=== PATIENT | male | born 1965 | race Caucasian/White ===

== ENCOUNTER 2017-11-12 10:29 | Inpatient (IN) | payer OTHER ==
[~2017-11-12] VITALS: Ht 165.1 cm; Wt 69.4 kg
[~2017-11-12 10:29] MED LIST: LISI10TA5 PO
--- NOTE | 2017-11-12 10:33 | NUR ---
AAOX3, [id number] FROM THE STREET FOR COUGH AND CONGESTION X 2 MOS, SOB,CP HYPOXIC IN THE FIELD, [id number]=472.1. TACHYPNEIC AND TACHYCARDIC. SKIN IS HOT TO TOUCH. ASSISTED TO HOSPITAL GOWN, PLACED ON MONITOR. WILL CONTINUOUSLY MONITOR THE PATIENT. AWAITING MD FOR EVAL.
--- NOTE | 2017-11-12 10:35 | NUR ---
DR NEAL AT BS FOR EVAL.
[2017-11-12] MEDS ORDERED: CEFTRIAXONE 1GM BAG (ER ONLY) 50 ML IV ONE (11:00)
[2017-11-12] MEDS ORDERED: IV NS 0.9% 1,000 ML BAG IV ONE (11:00)
[2017-11-12] MEDS ORDERED: AZITHROMYCIN 500 MG in IV D5W 250 ML IV ONE (11:00)
[2017-11-12 11:12] LABS: BASOPHILS # (AUTO) 0.1 /CMM (0.0-0.2); EOSINOPHILS % (AUTO) 0.1 % (0.0-6.0); HEMATOCRIT 37 % (39-51); HEMOGLOBIN 12.4 g/dL (13.5-17.5); LYMPHOCYTES # (AUTO) 0.5 /CMM (0.8-4.8); LYMPHOCYTES % (AUTO) 6.5 % (20.0-44.0); MEAN CORPUSCULAR HEMOGLOBIN 28 PG (26.0-33.0); MEAN CORPUSCULAR HGB CONC 33 g/dl (31.0-36.0); MEAN CORPUSCULAR VOLUME 83 fL (80-96); MONOCYTES # (AUTO) 0.9 /CMM (0.1-1.30); MONOCYTES % (AUTO) 13.1 % (2.0-12.0); NEUTROPHILS # (AUTO) 5.4 /CMM (1.8-8.9); NEUTROPHILS % (AUTO) 79.3 % (43.0-81.0); PLATELET COUNT (AUTO) 268 /CMM (150-450); RDW COEFFICIENT OF VARIATION 14.6 (11.5-15.0); WHITE BLOOD COUNT (AUTO) 6.9 K/uL (4.3-11.0)
[2017-11-12 11:22] LABS: CALCIUM, SERUM 8.1 mg/dL (8.5-10.1); CREATININE 1.1 mg/dL (0.6-1.3); POTASSIUM 4.1 mmol/L (3.5-5.1)
[2017-11-12 11:27] LABS: INR 1.3 (0.87-1.13); PROTHROMBIN TIME 13.5 SECS (9.5-12.7)
[2017-11-12 11:28] LABS: BILIRUBIN,DIRECT 0.2 mg/dL (0.0-0.2); BILIRUBIN,TOTAL 0.6 mg/dL (0.2-1.0); TOTAL PROTEIN, SERUM 6.8 g/dL (6.4-8.2)
[2017-11-12] MEDS ORDERED: ACETAMINOPHEN ES 500 MG TABLET ONE (11:28)
[2017-11-12 11:30] LABS: TROPONIN I 0.221 ng/mL (0.00-0.056)
[2017-11-12 11:39] LABS: APPEARANCE,URINE Clear (CLEAR); BILIRUBIN,URINE SMALL (NEGATIVE); BLOOD, URINE Moderate Ery/uL (NEGATIVE); COLOR,URINE Dark (YELLOW); KETONES,URINE Trace (NEGATIVE); LEUKOCYTE ESTERASE ,URINE Negative (NEGATIVE); NITRITE, URINE Negative (NEGATIVE); PH,URINE 5.5 (5.0-8.0); PROTEIN,URINE 100 mg/dl (NEGATIVE); UGLUCOSE Negative (NEGATIVE)
--- NOTE | 2017-11-12 11:40 | NUR ---
Patient is resting comfortably in bed with eyes closed. Easily aroused. VSS
[2017-11-12] MEDS ORDERED: ALBUTEROL FS 2.5 MG/3 ML VIAL.NEB ONE (11:49)
[2017-11-12 11:56] LABS: BACTERIA,URINE Rare /HPF (None Seen); SQUAMOUS EPITHELIAL CELL,UR Few /HPF (None Seen); WBC,URINE 0-2 /HPF (0-3)
[2017-11-12] MEDS ORDERED: ACETAMINOPHEN 325 MG TABLET PO ONE (12:00)
[2017-11-12] MEDS ORDERED: ALBUTEROL FS 2.5 MG/3 ML VIAL.NEB NEB ONE (12:00)
[2017-11-12] MEDS ORDERED: NITROGLYCERIN 0.4 MG/TAB BOTTLE ONE (12:08)
[2017-11-12] MEDS ORDERED: ASPIRIN 81 MG TAB.CHEW ONE (12:09)
--- NOTE | 2017-11-12 12:16 | NUR ---
2ND NITRO 0.4 GIVEN SL, PT STILL C/O CP 06/15 DY=884/[id number]
[2017-11-12] MEDS ORDERED: MORPHINE SULFATE INJ 4 MG/ML DISP.SYRIN ONE (12:28)
[2017-11-12] MEDS ORDERED: NITROGLYCERIN 0.4 MG/TAB BOTTLE SL ONE (12:30)
[2017-11-12] MEDS ORDERED: MORPHINE SULFATE INJ 2 MG/ML DISP.SYRIN IV ONE (12:30)
[2017-11-12] MEDS ORDERED: ASPIRIN 81 MG TAB.CHEW PO ONE (12:30)
--- NOTE | 2017-11-12 13:36 | NUR ---
Patient is resting comfortably in bed with eyes closed. Easily aroused. VSS
--- NOTE | 2017-11-12 13:40 | NUR ---
REPORT GIVEN TO SWETHA MILLER FOR ARACELI TELE [phone]
[2017-11-12] MEDS ORDERED: ONDANSETRON HCL/PF 4 MG/2 ML VIAL IVP PRN (14:00)
[2017-11-12] MEDS ORDERED: ZOLPIDEM TARTRATE 5 MG TABLET PO PRN (14:00)
[2017-11-12] MEDS ORDERED: ACETAMINOPHEN 325 MG TABLET PO PRN (14:00)
[2017-11-12] MEDS ORDERED: Z GUARD REMEDY 2 OZ OINT TP PRN (14:00)
[2017-11-12] MEDS ORDERED: MAG HYDROX/AL HYDROX/SIMETH 30 ML UDC PO PRN (14:00)
[2017-11-12] MEDS ORDERED: MAGNESIUM HYDROXIDE 30 ML UDC PO PRN (14:00)
[2017-11-12 14:23] VITALS: BP 114/86
--- NOTE | 2017-11-12 14:27 | NUR ---
ADMISSION NOTES PATIENT ADMITTED FROM ER MALE 52 Y/OLD HOMELESS A/O X3 WITH DX OF CHEST PAIN , AND PNEUMONIA. PATIENT HAS A FACE MASK ON 5L. PATIENT C/O CHEST PAIN AT THIS TIME ON PAIN SCALE 7/10, AND COUGHING. V/S TAKEN BP-114/86, P-119, R-20, T-98.9, O2 -100 O2-5L MASK. SKIN ASSESSMENT DONE, PICTURE TAKEN, IV ACCESS ON LEFT FOREARM INTACT, BELONGING AND CONTRABAND CHECKED. NEEDS ATTENDED AND ANTICIPATED, PATIENT BED REST. CALL LIGHT WITHIN TO REACH. DR MARTINS AWARE OF NEW PATIENT, AND MEDICATION, CONTINUED MENTORING.
[2017-11-12 16:00] VITALS: BP 105/91
[2017-11-12] MEDS: HYDROCODONE/APAP 5/325MG 1 EACH TABLET PO PRN ×2 (17:00→21:40)
--- NOTE | 2017-11-12 17:00 | NUR ---
RN NOTES ADMINISTERED NARCO 5/325 MG PO PRN FOR GENERALIZED PAIN 05/15 PER PATIENT REQUEST, V/S TAKEN BP-126/56, P-118, CONTINUED MONITORING.
--- NOTE | 2017-11-12 18:00 | NUR ---
rn notes medication were administered for pain effective, 1600 lab troponin result notified dr pizarro and get new order cardiac consultation. order taken and carried out. patient on 02-2l nc, resting in the bed, call light within to reach. endorsed oncoming nurse for continuation of care.
--- NOTE | 2017-11-12 19:30 | NUR ---
RN NOTES RECEIVED PATIENT IN BED WITH EYES CLOSED; AROUSABLE. AO X 2-3, ABLE TO MAKE NEEDS KNOWN. NO ACUTE DISTRESS NOTED. MONITORED FOR PAIN/CHEST PAIN. IV SITE PATENT, INTACT; FLUSHED. SINUS TACH HR 117. SAFETY REMINDERS GIVEN. ON LOW BED WITH BILATERAL UPPER SIDE RAILS UP. CALL [place] WITHIN EASY REACH. BED ALARM ON. WILL CONTINUE TO MONITOR.
[2017-11-12 20:00] VITALS: BP 133/62
[2017-11-12 21:52] VITALS: BP 133/62
[2017-11-12] MEDS ORDERED: LORAZEPAM 1 MG TABLET PO PRN (22:30)
[2017-11-12] MEDS ORDERED: LORAZEPAM 0.5 MG TABLET ONE (22:39)
[2017-11-12] MEDS ORDERED: ENOXAPARIN SODIUM 60 MG/0.6 ML DISP.SYRIN SQ ONE (22:40)
[2017-11-12] MEDS ORDERED: LORAZEPAM INJ 2 MG/ML VIAL ONE (23:00)
[2017-11-13] MEDS: LORAZEPAM INJ 2 MG/ML VIAL IV PRN
--- NOTE | 2017-11-13 00:20 | NUR ---
RN NOTES PATIENT ASLEEP WITH HR 140s SINUS TACH POST ADMINISTRATION OF AMBIEN AND ATIVAN. DR. MORALES MADE AWARE WITH NEW ORDER FOR CARDIZEM 10 NG IV PUSH X 1; NOTED AND CARRIED OUT.
[2017-11-13] MEDS ORDERED: DILTIAZEM HCL 50 MG IV IV ONE ×3 (00:30→03:00)
[2017-11-13 00:31] VITALS: BP 139/74
[2017-11-13] MEDS ORDERED: DILTIAZEM HCL 25 MG IV ONE (01:28)
[2017-11-13] MEDS ORDERED: DILTIAZEM HCL 25 MG IV IV ONE (02:00)
[2017-11-13 04:55] VITALS: BP 147/67
--- NOTE | 2017-11-13 06:59 | NUR ---
RN NOTES PATIENT ASLEEP, AROUSABLE. RESPIRATIONS EVEN. NO SIGNS OF PAIN NOTED. ST HR 128. NEEDS ATTENDED. SAFETY PRECAUTIONS AND COMFORT MEASURES IN PLACE. WILL GIVE REPORT TO DAY SHIFT FOR CONTINUITY OF CARE.
--- NOTE | 2017-11-13 07:05 | NUR ---
TREE TAPPING LABORER OPENING NOTES RECVD REPORT FROM NOC RN. PT SLEEPING EASY TO AWAKE. TELE ST 107. 2LNC 94% NON LABORED RESP. TROP TRENDNIG DOWN NOW 0.188. DENIES PAIN AT PRESENT TIME. LFA 18G PATENT SL. BED IN LOW LOCKED POSITION. CALL LIGHT IN REACH. SIDE RAILS UP X 2. WILL CONT TO MONITOR CLOSELY.
--- NOTE | 2017-11-13 07:20 | NUR ---
CAMPUS ADMINISTRATOR OPENING NOTE RECVD REPORT FROM OSWALDO POSADA. AAO2 ADVANCED DEMENTIA, PLEASANT. CURRAN. RW 20G PIV NS INFUSING AT 75ML/HR. IV ABX ORDERED. DX PNA. NON LABORED RESP 2LNC 95% O2 SATS. HOB ELEVATED. BED IN LOW LOCKED POSITION. SIDE RAILS UP X 2. CALL LIGHT IN REACH. WILL CONT TO MONITOR CLOSELY. Addendum: 11/13/17 at 1107 by KODAK CERVANTES RN entered in error
[2017-11-13 07:53] LABS: EOSINOPHILS % (AUTO) 0.5 % (0.0-6.0); HEMATOCRIT 39 % (39-51); HEMOGLOBIN 12.8 g/dL (13.5-17.5); LYMPHOCYTES # (AUTO) 0.4 /CMM (0.8-4.8); LYMPHOCYTES % (AUTO) 4.4 % (20.0-44.0); MEAN CORPUSCULAR HEMOGLOBIN 28 PG (26.0-33.0); MEAN CORPUSCULAR HGB CONC 33 g/dl (31.0-36.0); MEAN CORPUSCULAR VOLUME 86 fL (80-96); MONOCYTES # (AUTO) 0.6 /CMM (0.1-1.30); MONOCYTES % (AUTO) 6.9 % (2.0-12.0); NEUTROPHILS # (AUTO) 7.2 /CMM (1.8-8.9); NEUTROPHILS % (AUTO) 88.2 % (43.0-81.0); PLATELET COUNT (AUTO) 224 /CMM (150-450); RDW COEFFICIENT OF VARIATION 15.8 (11.5-15.0); RED BLOOD CELL COUNT(AUTO) 4.52 MIL/uL (4.5-6.0); WHITE BLOOD COUNT (AUTO) 8.2 K/uL (4.3-11.0)
[2017-11-13 08:00] VITALS: BP 153/100
[2017-11-13 08:19] LABS: CALCIUM, SERUM 7.9 mg/dL (8.5-10.1); PHOSPHORUS 3.7 mg/dL (2.5-4.9); POTASSIUM 4.5 mmol/L (3.5-5.1)
--- NOTE | 2017-11-13 11:08 | NUR ---
critical k=6.8 CR >10. Dr. Massey AWARE. ALEKS AND MAXWELL ORDERED. PLAN FOR HD TODAY. PT ASYMPTOMATIC.
--- NOTE | 2017-11-13 11:32 | NUR ---
Social service consult requested by Med Surg KAREN Wilcox for homelessness. Pt. is a 52 year old male who was admitted to [facility] for pneumonia. SW met with pt. bedside. Pt. alert and oriented x 3. Pt. had his eyes closed during the entire assessment. Pt. was mumbling at times and SW and to request him to speak louder. Pt. appeared disheveled. Pt. states he is homeless and has been homeless his entire life. Pt. declined to answer when asked if he uses drugs and alcohol. SW offered pt. homeless resources and [facility] placement, however pt. declined. Pt. has no advance directive and makes his own decisions. No other social service needs are required at this time. SW is available if needed. SW to offer pt. homeless resources again prior to discharge and have pt. sign Homeless Patient waiver form.
[2017-11-13] MEDS: CEFTRIAXONE 1 G in IV D5W 50 ML IV SCH (12:06)
[2017-11-13] MEDS: AZITHROMYCIN 250 MG TABLET PO SCH (12:07)
[2017-11-13] MEDS: DILTIAZEM HCL CD 240 MG PO SCH (12:07)
[2017-11-13 16:00] VITALS: BP 160/96
[2017-11-13] MEDS: HYDROCODONE/APAP 5/325MG 1 EACH TABLET PO PRN (16:40)
--- NOTE | 2017-11-13 18:03 | NUR ---
HI TEACHER CLOSING NOTES NO ACUTE EVENTS DURING SHIFT. TROPS TRENDING DOWNWARD. STARTED ON CARDIINDIAM PO TELE SR 95 AT PRESENT. 4LNC NONLABORED RESP. C/O GENERALIZED PAIN PROVIDED NORCO X 1 W/ EFFECT. CALL LIGHT IN REACH. BED IN LOW LOCKED POSITION. SIDE RAILS UP X 2. WILL CONT TO MONITOR CLOSELY. WILL ENDORSE TO OSWALDO POSADA. Addendum: 11/13/17 at 1805 by KODAK CERVANTES RN LW IV PATENT INTACT.
--- NOTE | 2017-11-13 19:30 | NUR ---
LICENSE REGISTRATION EXAMINER NOTE RECEIVED PATIENT AWAKE AND ALERT IN BED. PATIENT DENIES ANY PAIN OR DISCOMFORT. RECEIVING 4L O2 VIA NASAL CANNULA. O2 SAT 94%. IV SITE INTACT WITH NO REDNESS NOTED. BED LOCKED AND IN LOWEST POSITION. SIDE RAILS UP, CALL LIGHT WITHIN REACH. WILL CONTINUE TO MONITOR.
[2017-11-13 20:00] VITALS: BP 102/57
[2017-11-14] VITALS (22 sets, daily range): BP systolic 111–168; BP diastolic 68–106
[2017-11-14] MEDS: LORAZEPAM INJ 2 MG/ML VIAL IV PRN (05:59)
--- NOTE | 2017-11-14 06:00 | NUR ---
EDUCATION OFFICER NOTE PATIENT ANXIOUS AND RESTLESS. YELLING PROFANITY OUT LOUD. ATIVAN 0.5MG IV ADMINISTERED SAFELY. ALL NEEDS MET AND ATTENDED TO. WILL ENDORSE TO DAY SHIFT FOR ARACELI.
--- NOTE | 2017-11-14 07:30 | NUR ---
EDUCATION AND DEVELOPMENT MANAGER/OPENING NOTES RECEIVED PT. IN BED A&OX3. PT. WAS HAVING RESPIRATORY DISTRESS, BREATHING LABORED, WITH SOB. PT. IS BREATHING ON OXYGEN 8L/MIN VIA MASK. BED IS IN LOWEST AND LOCKED POSITION. 2 SIDE RAILS UP, AND CALL LIGHT WITHIN REACH.
--- NOTE | 2017-11-14 07:35 | NUR ---
DOPE FIRER/ NOTES PT.'S TELE READING WAS SINUS TACHY WITH PAC'S AT 120 BPM. VITAL SIGNS, BP 160/100, PULSE 124 BPM, OXYGEN SATURATION 84%, AND DESATURATING. RESPIRATORY THERAPIST WAS CONTACTED, AND CHARGE NURSE WAS MADE AWARE. PER CHARGE NURSE PT. WAS PLACED ON A REBREATHER MASK.
--- NOTE | 2017-11-14 07:40 | NUR ---
RN NOTES DR. FONG WAS NOTIFIED, AND. PT. WAS SEEN AND EXAMINED. PER DR. FONG, NEW ORDERS TO TRANSFER PT. TO ICU, CHEST X RAY, AND ABG'S.
[2017-11-14] MEDS ORDERED: FUROSEMIDE 100 MG/10 ML VIAL ONE (07:49)
--- NOTE | 2017-11-14 07:50 | NUR ---
RN PER CHARGE NURSE ORDER WAS GIVEN TO PUT ORDER IN FOR LASIX 80 MG IVP ONCE. ORDER WAS ENTERED.
--- NOTE | 2017-11-14 07:50 | NUR ---
RN NOTES ICU TRANSFER PT. WAS TRANSFERRED TO ICU DUE TO CHANGE IN CONDITION. REPORT WAS GIVEN TO SWETHA ORTIZ. ABG'S AND CHEST X RAY WAS ORDERED.
[2017-11-14] MEDS: FUROSEMIDE 20 MG/2 ML VIAL IV SCH ×2 (07:59→10:15)
[2017-11-14] MEDS ORDERED: FUROSEMIDE 100 MG/10 ML VIAL IV ONE (08:00)
--- NOTE | 2017-11-14 08:00 | NUR ---
REFRIGERATING OILERSENIOR MANAGER MERGERS & ACQUISITIONS NOTES RECVD REPORT FROM MS RN "ARIE". PT TRF TO ICU FOR INCREASING SOB 83% O2 SATS. DX CP SOB ST 120'S. NOW TELE ST 101. 93% O2 SATS ON BIPAP NOW. GIVEN LASIX IN MEDSURG. CURRAN INSERTED. CXR ABG RESULTS PDG. LFA 18G PIV SL. WILL CONT TO MONITOR CLOSELY.
[2017-11-14 08:07] LABS: ABG BASE EXCESS 2.4 mmol/L; ABG OXYGEN SATURATION 94.1 % (92.0-98.5); ABG PCO2 80.2 mmHg (35.0-45.0); ABG PH 7.226 (7.350-7.450); ABG PO2 82.6 mmHg (75.0-100.0); AaDO2 550.2 mmHg; COHb 0.8 % (0.5-1.5); MetHb 0.4 % (0.0-1.5); SITE, ABG Right Radial
[2017-11-14 08:24] LABS: BASOPHILS % (AUTO) 0.1 % (0.0-2.0); EOSINOPHILS % (AUTO) 0.2 % (0.0-6.0); HEMATOCRIT 41 % (39-51); HEMOGLOBIN 13.4 g/dL (13.5-17.5); LYMPHOCYTES # (AUTO) 0.5 /CMM (0.8-4.8); LYMPHOCYTES % (AUTO) 4.1 % (20.0-44.0); MEAN CORPUSCULAR HEMOGLOBIN 28 PG (26.0-33.0); MEAN CORPUSCULAR HGB CONC 33 g/dl (31.0-36.0); MEAN CORPUSCULAR VOLUME 87 fL (80-96); MONOCYTES # (AUTO) 0.8 /CMM (0.1-1.30); MONOCYTES % (AUTO) 6.9 % (2.0-12.0); NEUTROPHILS # (AUTO) 10.9 /CMM (1.8-8.9); NEUTROPHILS % (AUTO) 88.7 % (43.0-81.0); PLATELET COUNT (AUTO) 280 /CMM (150-450); RDW COEFFICIENT OF VARIATION 15.4 (11.5-15.0); RED BLOOD CELL COUNT(AUTO) 4.75 MIL/uL (4.5-6.0); WHITE BLOOD COUNT (AUTO) 12.2 K/uL (4.3-11.0)
[2017-11-14 08:35] LABS: CALCIUM, SERUM 8.3 mg/dL (8.5-10.1); CREATININE 0.8 mg/dL (0.6-1.3); POTASSIUM 5.6 mmol/L (3.5-5.1)
[2017-11-14] MEDS ORDERED: LEVALBUTEROL HCL NEB 1.25 MG/0.5 ML VIAL.NEB IH SCH (09:30)
[2017-11-14] MEDS: ALBUTEROL FS 2.5 MG/3 ML VIAL.NEB NEB SCH ×3 (10:00→23:18)
[2017-11-14] MEDS: DILTIAZEM HCL CD 240 MG PO SCH (10:16)
[2017-11-14] MEDS: methylPREDNISolone SOD SUCC 40 MG/ML VIAL IV SCH ×3 (10:16→16:26)
[2017-11-14] MEDS: ASPIRIN 81 MG TAB.CHEW PO SCH (10:16)
[2017-11-14] MEDS: CEFTRIAXONE 1 G in IV D5W 50 ML IV SCH (13:01)
[2017-11-14] MEDS: FUROSEMIDE 40 MG/4 ML VIAL IV SCH ×3 (13:10→17:30)
[2017-11-14] MEDS: AZITHROMYCIN 250 MG TABLET PO SCH (13:10)
[2017-11-14 14:56] LABS: ABG BASE EXCESS 10.4 mmol/L; ABG OXYGEN SATURATION 96.1 % (92.0-98.5); ABG PCO2 59.4 mmHg (35.0-45.0); ABG PH 7.415 (7.350-7.450); AaDO2 204.7 mmHg; COHb 0.5 % (0.5-1.5); MetHb 0.5 % (0.0-1.5); O2Hb 95.1 % (94.0-97.0); SITE, ABG Right Radial; VENT MODE, BG bipap 20/5 ps 15
--- NOTE | 2017-11-14 18:19 | NUR ---
WHARF LABOURER CLOSING NOTE NO ACUTE EVENTS AFTER ARRIVAL TODAY. PT DOES NOT TOLERATE BEING OFF BIPAP MORE THAN A COUPLE MINUTES. RUE MIDLINE PLACED BY PICC NURSE TODAY. ABX ADM. VSS. LASIX ADM PER ORDERS AND MONITORED VIA CURRAN OUTPUT. CALL LIGHT IN REACH. BED IN LOW LOCKED POSITION. PT SLEEPING EASY TO AROUSE. WILL ENDORSE TO OSWALDO RN. TELE SR 80'S.
--- NOTE | 2017-11-14 19:30 | NUR ---
RN OPENING NOTES: RECEIVED PATIENT ON BED, LETHARGIC AROUSABLE THROUGH PERSISTENT TACTILE STIMULATION BUT REMAINS DROWSY. PATIENT COMPLAINING HE IS HUNGRY WITH DINNER TRAY UNTOUCHED. PATIENT COULD NOT REMAIN TO STAY AWAKE, PATIENT DEEMED NOT SAFE TO EAT WHOLE MEAL. TO MONITOR. ON CONTINUOUS BIPAP WITH FI02 AT 50%. IV ACCESS REMAINED INTACT, CURRAN CATH DRAINING VIA GRAVITY. SAFETY MEASURES ENSURED AT ALL TIMES. CONTINUOUSLY MONITORED.
--- NOTE | 2017-11-14 20:14 | NUR ---
PT RECEIVED ON BIPAP. NO RESP DISTRESS NOTED. TOLERATING SETTINGS. ALARMS SET AND AUDIBLE. WILL CONTINUE TO MONITOR. Addendum: 11/14/17 at 2015 by CARRIE VALDERRAMA RT Amended: Links added.
--- NOTE | 2017-11-14 20:50 | NUR ---
RN NOTES: TO GIVE LAST DOSE OF LASIX ORDERED DESPITE IT IS PAST ORIGINAL SCHEDULE. CALLED PHARMACY AND VERIFIED MED, PHARMACIST PLACED NEW ORDER IN FOR A NEW SCHED. LASIX 40 MG GIVEN ORDERED. TO MONITOR BLOOD PRESSURE.
[2017-11-14] MEDS ORDERED: FUROSEMIDE 40 MG/4 ML VIAL IV SCH (21:00)
--- NOTE | 2017-11-14 22:30 | NUR ---
RN NOTE: PATIENT WOKE UP AND WAS ASKING FOR FOOD. ATTEMPTED TO HAVE PATIENT EAT DINNER, ASPIRATION PRECAUTIONS ENSURED. PLACED PATIENT ON O2 VIA NC AT 5LPM WHILE PATIENT IS EATING. KEPT PATIENT STIMULATED WHILE EATING, BED ON CHAIR POSITION WHILE EATING. PATIENT ABLE TO SWALLOW WITHOUT DISTRESS OR COUGHING. ON 5LPM PATIENT IS SATURATING ABOVE 91%. PLACED BACK ON BIPAP A FEW MINUTES AFTER EATING.
[2017-11-15] VITALS (32 sets, daily range): BP systolic 111–171; BP diastolic 50–112
--- NOTE | 2017-11-15 04:00 | NUR ---
RN NOTES: PATIENT'S BLOOD PRESSURE NOTED TO BE TRENDING UP. PATIENT DENIES CHEST PAIN OR PAIN AT THIS TIME. TO MONITOR.
[2017-11-15 05:26] LABS: EOSINOPHILS # (AUTO) 0.1 /CMM (0.0-0.7); EOSINOPHILS % (AUTO) 1.6 % (0.0-6.0); HEMATOCRIT 39 % (39-51); HEMOGLOBIN 12.8 g/dL (13.5-17.5); LYMPHOCYTES # (AUTO) 0.5 /CMM (0.8-4.8); LYMPHOCYTES % (AUTO) 7.4 % (20.0-44.0); MEAN CORPUSCULAR HEMOGLOBIN 28 PG (26.0-33.0); MEAN CORPUSCULAR HGB CONC 33 g/dl (31.0-36.0); MEAN CORPUSCULAR VOLUME 85 fL (80-96); MONOCYTES # (AUTO) 0.6 /CMM (0.1-1.30); NEUTROPHILS # (AUTO) 5.9 /CMM (1.8-8.9); PLATELET COUNT (AUTO) 258 /CMM (150-450); RDW COEFFICIENT OF VARIATION 15.2 (11.5-15.0); RED BLOOD CELL COUNT(AUTO) 4.57 MIL/uL (4.5-6.0); WHITE BLOOD COUNT (AUTO) 7.1 K/uL (4.3-11.0)
[2017-11-15 05:40] LABS: ALBUMIN 2.6 g/dL (3.4-5.0); BILIRUBIN,TOTAL 0.3 mg/dL (0.2-1.0); CALCIUM, SERUM 8.2 mg/dL (8.5-10.1); CREATININE 1.2 mg/dL (0.6-1.3); MAGNESIUM 1.9 mg/dL (1.8-2.4); POTASSIUM 4.3 mmol/L (3.5-5.1); TOTAL PROTEIN, SERUM 6.8 g/dL (6.4-8.2)
[2017-11-15 05:46] LABS: TROPONIN I 0.076 ng/mL (0.00-0.056)
--- NOTE | 2017-11-15 06:32 | NUR ---
RN CLOSING NOTES: PATIENT REMAINED IN BED WITHOUT NOTED DISTRESS ON CONTINUOUS BIPAP. NO FURTHER DECLINE IN MENTAL STATUS. REMAINED SR-ST ON MONITOR. REMAINS CHEST PAIN FREE AT THIS POINT. DR FONG IN, S/E PATIENT NEW ORDERS NOTED AND TO CARRY OUT, TO ADMIN LASIX. SKIN CARE RENDERED. FC REMAINED INTACT, UO DOCUMENTED. ASPIRATION PRECAUTIONS AND SAFETY MEASURES ENSURED AT ALL TIMES. CONTINUOUSLY MONITORED. TO ENDORSE TO AM SHIFT RN.
[2017-11-15] MEDS: FUROSEMIDE 40 MG/4 ML VIAL IV SCH ×3 (06:55→15:12)
--- NOTE | 2017-11-15 07:30 | NUR ---
RN INITIAL NOTE PATIENT RECEIVED IN BED SLEEPING. EASILY AROUSED. ABLE TO MAKE NEEDS KNOWN. SINUS RHYTHM ON TELE MONITOR. ON BIPAP. SATING WELL. SKIN IS WARM AND DRY TO TOUCH. IV SITES FLUSHED, PATENT. CURRAN CATHETER DRAINING TO GRAVITY. SKIN IS WARM AND DRY TO TOUCH. SAFETY PRECAUTIONS IMPLEMENTED, BED IN LOCKED, LOW POSITION WITH TWO SIDE RAILS UP. CALL LIGHT AND BELONGINGS WITHIN EASY REACH. WILL CONTINUE TO MONITOR.
[2017-11-15] MEDS: ALBUTEROL FS 2.5 MG/3 ML VIAL.NEB NEB SCH ×2 (07:32→15:52)
--- NOTE | 2017-11-15 08:00 | NUR ---
RT NOTE: AWAKE AND ALERT PATIENT REFUSES BIPAP. STATES HE WANTS TO EAT. PLACED ON 5 LPM VIA NASAL CANNULA. WILL CONTINUE TO MONITOR.
[2017-11-15] MEDS: methylPREDNISolone SOD SUCC 40 MG/ML VIAL IV SCH ×3 (08:47→17:23)
[2017-11-15] MEDS: DILTIAZEM HCL CD 240 MG PO SCH (08:49)
[2017-11-15] MEDS: ASPIRIN 81 MG TAB.CHEW PO SCH (08:49)
[2017-11-15 11:12] LABS: ABG BASE EXCESS 16.1 mmol/L; ABG OXYGEN SATURATION 91.7 % (92.0-98.5); ABG PCO2 64.3 mmHg (35.0-45.0); ABG PH 7.448 (7.350-7.450); ABG PO2 64.9 mmHg (75.0-100.0); MetHb 0.4 % (0.0-1.5); O2Hb 90.4 % (94.0-97.0); SITE, ABG Right Radial; VENT MODE, BG NASAL CANNULA
[2017-11-15] MEDS: CEFTRIAXONE 1 G in IV D5W 50 ML IV SCH (11:58)
[2017-11-15] MEDS: AZITHROMYCIN 250 MG TABLET PO SCH (15:12)
[2017-11-15] MEDS: LACTOBACILLUS RHAMNOSUS GG 1 EACH CAP.SPRINK PO SCH (17:23)
--- NOTE | 2017-11-15 19:30 | NUR ---
BILLING SPECIALIST: RECEIVED PT DROWSY, A/O X 2. ON 3L 02 VIA NC WT NO ACUTE DISTRESS. NO C/O PAIN. UNCONTROLLED A. FIB ON PSYCHOLOGICAL EXAMINER WT HR IN THE 120s. AFEBRILE. F/C PATENT AND INTACT DRAINING YELLOW URINE TO GRAVITY. PAGED FOR NEW ONSET OF A. FIB FOR FURTHER ORDERS. AWAITING TO CALL BACK. HOB ELEVATED AT 35 DEGREES. SAFETY PRECAUTION NOTED.
--- NOTE | 2017-11-15 20:00 | NUR ---
HOUSEKEEPING CLEANER: DR. SALAZAR MADE AWARE THAT PT CONVERTED TO UNCONTROLLED A. FIB AND INFORMED HER THAT DR. FONG IS ON THE CASE. SHE SAID TO INFORM HIM.
--- NOTE | 2017-11-15 20:05 | NUR ---
MATERIAL CLERK: CALLED AND NOTIFIED DR. FONG THAT PT CONVERTED TO UNCONTROLLED A. FIB WT HR IN THE 120s-130s SINCE 1729. EKG ALSO CONFIRMED IT. MD POLANCO ORDER FOR AMIODARONE BOLUS AND DRIP. NOTED AND CARRIED OUT.
[2017-11-15] MEDS ORDERED: AMIODARONE 900 MG in IV D5W 482 ML IV PRN (20:30)
[2017-11-15] MEDS ORDERED: AMIODARONE 150 MG in IV D5W 100 ML IV ONE (20:30)
--- NOTE | 2017-11-15 21:00 | NUR ---
SPECIAL EDUCATION PARAPROFESSIONAL: AMIODARONE BOLUS STARTED FOR UNCONTROLLED A. FIB.
--- NOTE | 2017-11-15 21:20 | NUR ---
MANNEQUIN COLORING ARTIST: AMIODARONE DRIP STARTED AT 1MG/MIN. WILL CHANGE DOSE RATE AFTER 6 HRS.
[2017-11-16] VITALS (21 sets, daily range): BP systolic 97–168; BP diastolic 63–109
[2017-11-16] MEDS: ALBUTEROL FS 2.5 MG/3 ML VIAL.NEB NEB SCH ×4 (00:13→23:42)
--- NOTE | 2017-11-16 03:20 | NUR ---
PRODUCTION COOK: AMIODARONE DRIP DOSE RATE DECREASED TO 0.5MG/MIN PER PROTOCOL. NOW ON SR WT OCCASIONAL PVCs WT HR IN THE 90s. STILL ON BIPAP AND TOLERATING WELL WT NO ACUTE DISTRESS. WILL CONTINUE TO MONITOR.
--- NOTE | 2017-11-16 05:18 | NUR ---
PT MILVIA BIPAP WELL. NO DISTRESS NOTED. Addendum: 11/16/17 at 0519 by MARIE SIDHU RT Amended: Links added.
[2017-11-16 05:31] LABS: BASOPHILS % (AUTO) 0.5 % (0.0-2.0); HEMATOCRIT 43 % (39-51); HEMOGLOBIN 14.3 g/dL (13.5-17.5); LYMPHOCYTES # (AUTO) 0.6 /CMM (0.8-4.8); LYMPHOCYTES % (AUTO) 6.3 % (20.0-44.0); MEAN CORPUSCULAR HEMOGLOBIN 28 PG (26.0-33.0); MEAN CORPUSCULAR HGB CONC 33 g/dl (31.0-36.0); MEAN CORPUSCULAR VOLUME 84 fL (80-96); MONOCYTES # (AUTO) 0.7 /CMM (0.1-1.30); MONOCYTES % (AUTO) 8.1 % (2.0-12.0); NEUTROPHILS # (AUTO) 7.7 /CMM (1.8-8.9); NEUTROPHILS % (AUTO) 85.1 % (43.0-81.0); PLATELET COUNT (AUTO) 294 /CMM (150-450); RDW COEFFICIENT OF VARIATION 14.2 (11.5-15.0); RED BLOOD CELL COUNT(AUTO) 5.16 MIL/uL (4.5-6.0)
[2017-11-16 05:54] LABS: ALBUMIN 2.7 g/dL (3.4-5.0); BILIRUBIN,TOTAL 0.4 mg/dL (0.2-1.0); CALCIUM, SERUM 8.7 mg/dL (8.5-10.1); MAGNESIUM 1.9 mg/dL (1.8-2.4); PHOSPHORUS 3.2 mg/dL (2.5-4.9); POTASSIUM 3.5 mmol/L (3.5-5.1); TOTAL PROTEIN, SERUM 7.2 g/dL (6.4-8.2)
--- NOTE | 2017-11-16 06:13 | NUR ---
SENIOR CLINICAL RESEARCH SCIENTIST: CONTINUE ON AMIODARONE DRIP AT 0.5MG/MIN, SR ON FINANCIAL SPECIALIST WT OCCASIONAL PVCs. ALSO RECEIVED CO2=48 FROM 39. CONTINUE ON BIPAP WT SETTINGS ORDERED. NO ACUTE DISTRESS. PT REMAINS A/O X2-3. VS WITHIN HIS BASELINE. WILL ENDORSE TO DAY SHIFT FOR ANY NEW ORDERS.
--- NOTE | 2017-11-16 07:05 | NUR ---
DIRECTOR OF LAND ACQUISITION NOTES RECVD REPORT FROM NOC RN. PT SLEEPING EASY TO AROUSE. BIPAP. TELE SR 80'S AMIO 0.5MG GTT SECONDARY TO RAPID AFIB 130'S NOC. CURRAN YELLOW CLEAR. LFA 18 G RUE MIDLINE 18G. BED IN LOW LOCKED POSITION. CALL LIGHT IN REACH. SIDE RAILS UP X 2. WILL CONT TO MONITOR CLOSELY.
[2017-11-16] MEDS: methylPREDNISolone SOD SUCC 40 MG/ML VIAL IV SCH ×3 (07:56→17:22)
[2017-11-16] MEDS: LACTOBACILLUS RHAMNOSUS GG 1 EACH CAP.SPRINK PO SCH ×2 (07:56→17:22)
[2017-11-16] MEDS: ASPIRIN 81 MG TAB.CHEW PO SCH (07:56)
[2017-11-16] MEDS: DILTIAZEM HCL CD 240 MG PO SCH (07:57)
[2017-11-16] MEDS ORDERED: acetaZOLAMIDE SODIUM 500 MG/VIAL VIAL IV ONE (10:00)
[2017-11-16 10:08] LABS: ABG BASE EXCESS 22.8 mmol/L; ABG OXYGEN SATURATION 91.3 % (92.0-98.5); ABG PCO2 50.5 mmHg (35.0-45.0); ABG PH 7.594 (7.350-7.450); ABG PO2 57.2 mmHg (75.0-100.0); AaDO2 97.4 mmHg; COHb 0.9 % (0.5-1.5); O2Hb 90.5 % (94.0-97.0); SITE, ABG Right Radial; VENT MODE, BG N/C
[2017-11-16] MEDS: POTASSIUM CHLORIDE 20 MEQ TAB.PRT.SR PO SCH ×3 (10:21→12:39)
[2017-11-16] MEDS: CEFTRIAXONE 1 G in IV D5W 50 ML IV SCH (11:31)
[2017-11-16] MEDS: AZITHROMYCIN 250 MG TABLET PO SCH (12:39)
--- NOTE | 2017-11-16 15:18 | NUR ---
BUFFET MANAGER NOTE WILL CONTINUE PT CARE. NEW ROOM. DOWNGRADED.
--- NOTE | 2017-11-16 15:20 | NUR ---
TRAILER MECHANIC NOTE AAO2. FRIENDS AT BS. 3LNC NON LABORED RESP 92%. TELE 100 BPM SR AVB. C/O PAIN WILL NOTIFY MD. CURRAN DRAINING YELLOW URINE. CALL LIGHT IN REACH. ILIANA MIDLINE PATENT RUNNING 17ML/HR/ 0.5MG AMIO GTT ORDERED. WILL CONT TO MONITOR.
[2017-11-16] MEDS ORDERED: HYDROCODONE/APAP 5/325MG 1 EACH TABLET PO STA (16:20)
[2017-11-16] MEDS ORDERED: ENOXAPARIN SODIUM 40 MG/0.4 ML DISP.SYRIN SQ SCH (17:00)
--- NOTE | 2017-11-16 18:14 | NUR ---
TELE CLOSING NOTES PT SLEEPING. TELE SR 100 AVB. PAIN ALLEVIATED BY NORCO. IV'S INTACT. 3LNC NON LABORED RESP. BED IN LOW LOCKED POSITION. CALL LIGHT IN REACH. SIDE RAILS UP X 2. WILL MONITOR AND ENDORSE TO OSWALDO POSADA.
--- NOTE | 2017-11-16 20:00 | NUR ---
GRINDING SUPERVISOR NOTES RECEIVED RESTING COMFORTABLY ON BED,TRANSFER FROM ICU DUE TO CP/PNA.A/O X3-4,HOMELESS.WITH CURRAN CATH DRAINING PINKISH URINE.WITH RIGHT UPPER ARM MIDLINE INTACT AND PATENT.LFA SALINE LOCK #[address]O2 IN USED 3L/NC TO KEEP O2 SAT ABOVE 90%.IN NO ACUTE DISTRESS.
[2017-11-16] MEDS: HYDROCODONE/APAP 5/325MG 1 EACH TABLET PO PRN (22:11)
--- NOTE | 2017-11-16 23:29 | NUR ---
PT IS REFUSING BIPAP AT THIS TIME. PT WANTED TO STAY ON THE NASAL CANNULA. INFORMED THE PT AND RN TO CALL RT IF THE PT IS HAVING ANY SOB OR DISCOMFORT.
[2017-11-17] VITALS: BP 109/55
--- NOTE | 2017-11-17 | NUR ---
FUNDRAISING SPECIALIST NOTES STILL AWAKE,WATCHING TV PROGRAM.CLAIMED SHE'S NOT SLEEPY YET.
[2017-11-17 00:48] VITALS: BP 109/74
[2017-11-17 03:51] VITALS: BP 142/54
[2017-11-17 04:08] VITALS: BP 142/54
--- NOTE | 2017-11-17 06:47 | NUR ---
MANAGED CARE MANAGER NOTES NO SIGNIFICANT CHANGE IN STATUS.NO EPISODE OF SOB.CURRAN CATH DRAINS WELL.WILL ENDORSE TO DAY NURSE FOR ARACELI.
[2017-11-17 06:53] LABS: EOSINOPHILS # (AUTO) 0.1 /CMM (0.0-0.7); EOSINOPHILS % (AUTO) 0.8 % (0.0-6.0); HEMATOCRIT 43 % (39-51); LYMPHOCYTES # (AUTO) 0.6 /CMM (0.8-4.8); LYMPHOCYTES % (AUTO) 5.9 % (20.0-44.0); MEAN CORPUSCULAR HEMOGLOBIN 28 PG (26.0-33.0); MEAN CORPUSCULAR HGB CONC 33 g/dl (31.0-36.0); MEAN CORPUSCULAR VOLUME 85 fL (80-96); MONOCYTES # (AUTO) 0.8 /CMM (0.1-1.30); MONOCYTES % (AUTO) 8.4 % (2.0-12.0); NEUTROPHILS # (AUTO) 8.3 /CMM (1.8-8.9); NEUTROPHILS % (AUTO) 84.9 % (43.0-81.0); PLATELET COUNT (AUTO) 316 /CMM (150-450); RDW COEFFICIENT OF VARIATION 14.8 (11.5-15.0); RED BLOOD CELL COUNT(AUTO) 5.01 MIL/uL (4.5-6.0); WHITE BLOOD COUNT (AUTO) 9.8 K/uL (4.3-11.0)
[2017-11-17 07:28] LABS: ALBUMIN 2.8 g/dL (3.4-5.0); BILIRUBIN,TOTAL 0.4 mg/dL (0.2-1.0); CALCIUM, SERUM 8.8 mg/dL (8.5-10.1); CREATININE 1.2 mg/dL (0.6-1.3); MAGNESIUM 1.8 mg/dL (1.8-2.4); PHOSPHORUS 2.7 mg/dL (2.5-4.9); POTASSIUM 3.4 mmol/L (3.5-5.1); TOTAL PROTEIN, SERUM 7.2 g/dL (6.4-8.2)
[2017-11-17 08:00] VITALS: BP 112/84
[2017-11-17] MEDS: ASPIRIN 81 MG TAB.CHEW PO SCH (08:19)
[2017-11-17] MEDS: methylPREDNISolone SOD SUCC 40 MG/ML VIAL IV SCH ×2 (08:19→12:15)
[2017-11-17] MEDS: DILTIAZEM HCL CD 240 MG PO SCH (08:19)
[2017-11-17] MEDS: LACTOBACILLUS RHAMNOSUS GG 1 EACH CAP.SPRINK PO SCH (08:19)
[2017-11-17] MEDS: ALBUTEROL FS 2.5 MG/3 ML VIAL.NEB NEB SCH ×2 (08:42→16:32)
[2017-11-17] MEDS: HYDROCODONE/APAP 5/325MG 1 EACH TABLET PO PRN (08:58)
[2017-11-17 08:59] VITALS: BP 112/89
[2017-11-17] MEDS ORDERED: FUROSEMIDE 40 MG TABLET PO SCH (09:00)
[2017-11-17] MEDS ORDERED: AMIODARONE HCL 200 MG TABLET PO SCH (09:00)
[2017-11-17] MEDS ORDERED: POTASSIUM CHLORIDE 20 MEQ TAB.PRT.SR PO SCH (09:00)
--- NOTE | 2017-11-17 10:30 | NUR ---
M/S RN - Reinoso Reinoso catheter removed, trial void initiated, educated on bladder retraining.
[2017-11-17] MEDS: CEFTRIAXONE 1 G in IV D5W 50 ML IV SCH (12:15)
[2017-11-17] MEDS: AZITHROMYCIN 250 MG TABLET PO SCH (12:15)
--- NOTE | 2017-11-17 13:00 | NUR ---
M/S RN - Notes Patient able to void in the urinal without difficulty, urine output was 300 ml dark yellow. Will continue to monitor for any bladder distention.
--- NOTE | 2017-11-17 13:35 | NUR ---
SW met with pt. to discuss discharge plan. Pt. was sitting on his bed at time of visit. Pt. is pleasant and cooperative with SW. Pt. has a girlfriend and has been homeless for a while. Pt. receives $900 in SSI. SW offered pt. winter jail placement, however pt. declined. Pt. did want homeless referrals. SW gave pt. the following referrals: List of winter shelters, Homeless year round jail resources, food resources, New Lifestyles Guide to [facility] booklet and list of sober livings. Pt. accepted the referrals. Homeless Patient Waiver Form was signed by pt. and copy was placed in pt's chart. A bus token will be provided to pt.upon discharge. Pt's SWETHA Mullins and KAREN Adair were updated on pt's discharge plan. No other social service needs are required at this time. SW is available if needed.
--- NOTE | 2017-11-17 14:30 | NUR ---
M/S RN - Notes Patient wanted to take a shower prior to discharge. Assisted with needs.
[2017-11-17] MEDS ORDERED: ASPI-1169 PO (15:38)
[2017-11-17] MEDS ORDERED: PRED20TA PO (15:38)
[2017-11-17] MEDS ORDERED: SIMV40TA5 PO (15:38)
[2017-11-17] MEDS ORDERED: ALBU18HF2 INH (15:38)
[2017-11-17] MEDS ORDERED: AMIO200T7 PO (15:38)
--- NOTE | 2017-11-17 17:22 | NUR ---
M/S RN - Discharge Notes Mr. Almas Vogel 52 y/o is alert and oriented throughout the shift, denies chest pain, not in any form of distress, declined penitentiary placement per SW. Reviewed discharge instructions with pt and he verbalized full understanding of all teachings including medication management, f/u care with his PCP within 1 week of hospital discharge and ask PCP to order cardiac CT angiogram, e-prescription sent to preferred pharmacy ([facility]). Pt was given clothing and walker per request. ILIANA midline and LFA saline lock removed with both catheter tip intact, no redness and no swelling noted at the site. Pt refused photos to be taken on all skin issues, stated "Don't bother". Discharge papers signed and copy was given per protocol. All belongings given and he denies any missing items, witnessed by CN. Homeless Patient Waiver form was signed by pt and placed in the chart.
== END 2017-11-17 17:00 | disposition home or self-care (01) | DRG 190 ==
LOC: ER 10:31 → TELE 13:04 → ICU 11-14 08:14 → TELE 11-16 14:54 → MED 11-17 08:51
PROVIDERS: ADMIT Family Medicine; ATTEND Family Medicine
PROC: 05H533Z Insertion of Infusion Device into Right Subclavian Vein, Percutaneous Approach (ICD-10-PCS; principal; 2017-11-14)
PROC: 5A09457 Assistance with Respiratory Ventilation, 24-96 Consecutive Hours, Continuous Positive Airway Pressure (ICD-10-PCS; principal; 2017-11-14)
DX: I21.A1 Myocardial infarction type 2 (principal); J96.21 Acute and chronic respiratory failure with hypoxia; J15.9 Unspecified bacterial pneumonia; N17.9 Acute kidney failure, unspecified; I11.0 Hypertensive heart disease with heart failure; E87.3 Alkalosis; I50.9 Heart failure, unspecified; E87.1 Hypo-osmolality and hyponatremia; E44.1 Mild protein-calorie malnutrition; F20.9 Schizophrenia, unspecified; J96.22 Acute and chronic respiratory failure with hypercapnia; Z59.0 Homelessness; E83.51 Hypocalcemia; E86.0 Dehydration; Z79.899 Other long term (current) drug therapy; E88.09 Other disorders of plasma-protein metabolism, not elsewhere classified; I47.1 Supraventricular tachycardia; F17.210 Nicotine dependence, cigarettes, uncomplicated; Z71.6 Tobacco abuse counseling; R73.9 Hyperglycemia, unspecified; J98.4 Other disorders of lung; J44.0 Chronic obstructive pulmonary disease with (acute) lower respiratory infection; Z68.25 Body mass index [BMI] 25.0-25.9, adult; J44.1 Chronic obstructive pulmonary disease with (acute) exacerbation; R31.29 Other microscopic hematuria; Z87.01 Personal history of pneumonia (recurrent)
CPT/HCPCS: 36415; 36600; 71045-TC; 80048-TC; 80053-TC; 80061-TC; 80076-TC; 80305; 81000-TC; 82803-TC; 82962-TC; 83605-TC; 83735-TC; 84100-TC; 84484-TC; 85025-TC; 85730-TC; 87040-TC; 87081-TC; 87086-TC; 93307-TC; 94762-TC; A4606; J0282; J0456; J0696; J1120; J1650; J1940; J2060; J2270; J2920; J3490; J7030; J7040; J7050; J7060; Z7610

== ENCOUNTER 2018-10-24 03:28 | Inpatient (IN) | payer OTHER ==
[2018-10-24] VITALS (76 sets, daily range): BP systolic 65–172; BP diastolic 43–71
[~2018-10-24] VITALS: Ht 165.1 cm; Wt 73.5 kg
[~2018-10-24 03:28] MED LIST changes: +ALBU18HF2 INH; +AMIO200T7 PO; +ASPI-1169 PO; +FURO40TA5 PO; +LEVO750T21 PO; -LISI10TA5 PO; +PRED20TA PO; +SIMV40TA5 PO
--- NOTE | 2018-10-24 03:28 | NUR ---
PT BIB RA WITH A C/O SOB. PT ARRIVED ON NRB MASK WITH O2 @15ML/HR. PT WAS TACHYPNEIC WITH RETRACTIONS. PT TAKEN TO ER 8. DR SHAH, RT X2, SAMUEL, RN AND SWETHA JOSE AT THE BEDSIDE. PT PLACED ON THE MONITOR AND CONTINUOUS PULSE OX. PT WAS PLACED ON BIPAP. 18G IV STARTED ON RAC. BLOOD WAS DRAWN AND BLOOD CULTURES X 2 DRAWN AND SENT TO LAB.
[2018-10-24] MEDS ORDERED: ALBUTEROL FS 2.5 MG/3 ML VIAL.NEB ONE ×2 (03:41→03:42)
--- NOTE | 2018-10-24 03:47 | NUR ---
PT TO BE INTUBATED, PER DR SHAH. RT @ BEDSIDE PREPPING. TIME OUT DONE.
[2018-10-24] MEDS ORDERED: FUROSEMIDE 40 MG/4 ML VIAL ONE (03:50)
--- NOTE | 2018-10-24 03:51 | NUR ---
INTUBATION IN PROGRESS BY DR. SHAH
--- NOTE | 2018-10-24 03:51 | NUR ---
ETOMIDATE 20MG AND SUCC 150MG GIVEN IVP FOR INTUBATION.
--- NOTE | 2018-10-24 03:52 | NUR ---
ETT 7.5 AND 20@ THE LIP.
--- NOTE | 2018-10-24 03:52 | NUR ---
RT Pt received awake and alert in respiratory distress. Pt intubated w 7.5 ETT @ 23cm a the lip line w noted settings per Dr. Roberts. Sx'd moderate amounts of thick springer/brown secretions. Hhn tx given w no adverse reactions. Vent plugged into red outlet w ambubag @ hob. Alarms are set and audible. Will continue to monitor.
--- NOTE | 2018-10-24 03:54 | NUR ---
POS CO2 CHANGE
[2018-10-24] MEDS ORDERED: PROPOFOL 100 ML ONE (03:55)
[2018-10-24] MEDS ORDERED: PROPOFOL 100 ML IV ONE (03:55)
--- NOTE | 2018-10-24 03:55 | NUR ---
LASIX GIVEN IVP 80MG
--- NOTE | 2018-10-24 03:56 | NUR ---
PT IS ON VENT WITH THE FOLLOWING SETTINGS: AC18, TV 550, FIO2 100% PEEP 5
[2018-10-24] MEDS ORDERED: NTG 50 MG/D5W250 ML BOTTL 250 ML IV ONE ×2 (04:00→04:01)
[2018-10-24] MEDS ORDERED: PROPOFOL 200 MG/20 ML VIAL IV ONE (04:00)
[2018-10-24] MEDS ORDERED: ENALAPRILAT DIHYD. (2.5MG/ML) 1.25 MG/ML VIAL IV ONE ×2 (04:00→05:06)
[2018-10-24] MEDS ORDERED: ALBUTEROL FS 2.5 MG/3 ML VIAL.NEB NEB ONE (04:00)
[2018-10-24] MEDS ORDERED: SUCCINYLCHOLINE CHLORIDE 20 MG/ML VIAL IV ONE ×2 (04:00→12:00)
[2018-10-24] MEDS ORDERED: FUROSEMIDE 40 MG/4 ML VIAL IV ONE (04:00)
[2018-10-24] MEDS ORDERED: ETOMIDATE 2 MG/ML VIAL IV ONE ×2 (04:00→12:00)
--- NOTE | 2018-10-24 04:00 | NUR ---
PER DR. SHAH, PT IS NOT GETTING 30ML/KG OF NS FOR SEPSIS DUE TO PT HAVING CHF. BNP IS ELEVATED
--- NOTE | 2018-10-24 04:00 | NUR ---
16 FR dunn catheter inserted per sterile protocal. Immediate output 400ML of urine, yellow and clear
[2018-10-24 04:11] LABS: BASOPHILS # (AUTO) 0.1 /CMM (0.0-0.2); BASOPHILS % (AUTO) 1.1 % (0.0-2.0); EOSINOPHILS % (AUTO) 0.2 % (0.0-6.0); HEMATOCRIT 47 % (39-51); HEMOGLOBIN 14.6 g/dL (13.5-17.5); MEAN CORPUSCULAR HGB CONC 31 g/dl (31.0-36.0); MEAN CORPUSCULAR VOLUME 84 fL (80-96); MONOCYTES # (AUTO) 0.8 /CMM (0.1-1.30); MONOCYTES % (AUTO) 6.2 % (2.0-12.0); NEUTROPHILS # (AUTO) 10.3 /CMM (1.8-8.9); NEUTROPHILS % (AUTO) 77.5 % (43.0-81.0); PLATELET COUNT (AUTO) 428 /CMM (150-450); RED BLOOD CELL COUNT(AUTO) 5.55 MIL/uL (4.5-6.0); WHITE BLOOD COUNT (AUTO) 13.4 K/uL (4.3-11.0)
--- NOTE | 2018-10-24 04:18 | NUR ---
PER RT. VERBAL ORDER FOR RT TO MOVE THE ETT TO 23 @ THE LIP FROM 20@THE LIP. CXR ORDERED TO CONFIRM PLACEMENT
--- NOTE | 2018-10-24 04:18 | NUR ---
PT'S ETT IS 23@ THE LIP.
[2018-10-24 04:26] LABS: CREATININE 1.7 mg/dL (0.6-1.3); POTASSIUM 4.2 mmol/L (3.5-5.1)
--- NOTE | 2018-10-24 04:30 | NUR ---
14 FR OG tube inserted in the mouth next to ETT by SWETHA Potter. Correct positioning varified by aspiration, auscultation and x-ray. SECOND VERIFICATION by auscultation by MARÍA Lewis.
--- NOTE | 2018-10-24 04:30 | NUR ---
SUCTIONED PT WITH A YANKEUR. APPROX 100 ML MUCUS OUTPUT NOTED.
--- NOTE | 2018-10-24 04:30 | NUR ---
OG TUBE WAS CONNECTED TO INTERMITTENT SUCTIONING.
[2018-10-24 04:38] LABS: ALBUMIN 3.6 g/dL (3.4-5.0); BILIRUBIN,DIRECT 0.3 mg/dL (0.0-0.2); TOTAL PROTEIN, SERUM 8.6 g/dL (6.4-8.2)
--- NOTE | 2018-10-24 04:44 | NUR ---
CXR WAS DONE AND READ BY RADIOLOGIST. ETT IN PLACE. AWARE.
--- NOTE | 2018-10-24 04:51 | NUR ---
RT IS AT THE BEDSIDE SUCTIONING THE PT.
--- NOTE | 2018-10-24 05:08 | NUR ---
NITRO IS AT 15MCG/MIN. PROPOFOL 15MCG/MIN; 4.5ML/HR
--- NOTE | 2018-10-24 05:08 | NUR ---
Note fang in ED - 10/24/18 at 0527 by TMCCALAINA NITRO IS AT 15MG/HR. PROPOFOL 15MCG/MIN; 4.5ML/HR
--- NOTE | 2018-10-24 05:26 | NUR ---
NITRO REDUCED TO 10MCG/MIN; 3ML/HR BY SWETHA JOSE
--- NOTE | 2018-10-24 05:46 | NUR ---
PT WAS SUCTIONED AND APPROX 50 ML MUCUS OUTPUT NOTED.
[2018-10-24 05:53] LABS: ABG BASE EXCESS 0.6 mmol/L; ABG OXYGEN SATURATION 98.7 % (92.0-98.5); ABG PCO2 56.2 mmHg (35.0-45.0); ABG PH 7.314 (7.350-7.450); ABG PO2 172.1 mmHg (75.0-100.0); AaDO2 484.7 mmHg; COHb 1.7 % (0.5-1.5); MetHb 0.5 % (0.0-1.5); O2Hb 96.5 % (94.0-97.0); PEEP,BG 8 cm H2O; SITE, ABG Right Radial; VT, ABG 550 mL
[2018-10-24] MEDS ORDERED: CEFTRIAXONE 1GM BAG (ER ONLY) 50 ML IV ONE (05:55)
[2018-10-24] MEDS ORDERED: CEFTRIAXONE 1GM BAG (ER ONLY) 1 GM/50 ML PIGGYBACK IV ONE (06:00)
[2018-10-24] MEDS ORDERED: Z GUARD REMEDY 2 OZ OINT TP PRN (06:00)
[2018-10-24] MEDS ORDERED: ACETAMINOPHEN 325 MG TABLET PO PRN (06:00)
[2018-10-24] MEDS ORDERED: ONDANSETRON HCL/PF 4 MG/2 ML VIAL IVP PRN (06:00)
[2018-10-24] MEDS ORDERED: MAGNESIUM HYDROXIDE 30 ML UDC PO PRN (06:00)
[2018-10-24] MEDS ORDERED: PIPERACILLIN /TAZOBACTAM 4.5 G in IV D5W 50 ML IV SCH (06:00)
[2018-10-24] MEDS ORDERED: MAG HYDROX/AL HYDROX/SIMETH 30 ML UDC PO PRN (06:00)
--- NOTE | 2018-10-24 06:00 | NUR ---
CALLED TO GIVE REPORT, TOLD THAT ICU CHARGE WILL CALL BACK.
--- NOTE | 2018-10-24 06:11 | NUR ---
NITRO DRIP REDUCED BY HOV, RN TO 5MCG/MIN
[2018-10-24 06:19] LABS: APPEARANCE,URINE SL CLOUDY (CLEAR); BILIRUBIN,URINE NEGATIVE (NEGATIVE); BLOOD, URINE TRACE-INTA Ery/uL (NEGATIVE); COLOR,URINE YELLOW (YELLOW); KETONES,URINE NEGATIVE (NEGATIVE); LEUKOCYTE ESTERASE ,URINE NEGATIVE (NEGATIVE); NITRITE, URINE NEGATIVE (NEGATIVE); PH,URINE 5.5 (5.0-8.0); PROTEIN,URINE 2+ mg/dl (NEGATIVE); UGLUCOSE NEGATIVE (NEGATIVE); UROBILINOGEN,URINE 0.2 EU/dL (0.2)
[2018-10-24] MEDS ORDERED: PIPERACILLIN /TAZOBACTAM 4.5 G in IV D5W 100 ML IV ONE (06:30)
--- NOTE | 2018-10-24 06:30 | NUR ---
ICU/RN-ADMITTED THIS 53 Y/O MALE FROM ER PER ACLS PROTOCOL. NURSING FOCUS: ALTERED RESPIRATORY STATUS W/ DIAGNOSIS OF ACUTE RESPIRATORY FAILURE. ROUTINE ICU ADMISSION CARE INITIATED. PT. AGITATED, TRYING TO SIT UP ON BED, W/ BILATERAL SOFT WRIST RESTRAINTS ON. ON DIPRIVAN DRIP AT 5MCG/KG/MIN. WILL TITRATE ACCORDINGLY PER PROTOCOL. ON NTG DRIP AT 5MCG/MIN. BP-95/65, HR-88. WILL HOLD FOR NOW AND MONITOR PT. PER PROTOCOL. TEMPT.-99/F. PT. IS A FULL CODE.
[2018-10-24 06:35] LABS: BACTERIA,URINE Moderate /HPF (None Seen); SPERM,URINE Few /HPF (None Seen); SQUAMOUS EPITHELIAL CELL,UR Rare /HPF (None Seen)
[2018-10-24] MEDS ORDERED: VANCOMYCIN 1.25 GM in IV NS 0.9% 500 ML IV ONE (07:00)
[2018-10-24] MEDS ORDERED: FEE PK DOSING 1 MIN EA MC ONE (07:01)
--- NOTE | 2018-10-24 07:33 | NUR ---
decreased fio2 from 100% to 60% due to pao2 172 and spo2 100% Addendum: 10/24/18 at 0735 by JESSICA VYAS RT Amended: Links added.
[2018-10-24] MEDS ORDERED: ALBUTEROL FS 2.5 MG/3 ML VIAL.NEB NEB SCH (07:35)
[2018-10-24] MEDS: FUROSEMIDE 40 MG/4 ML VIAL IV SCH ×2 (08:01→12:46)
[2018-10-24] MEDS: ENOXAPARIN SODIUM 40 MG/0.4 ML DISP.SYRIN SQ SCH (08:02)
[2018-10-24 08:10] LABS: CALCIUM, SERUM 8.2 mg/dL (8.5-10.1); CREATININE 1.4 mg/dL (0.6-1.3)
[2018-10-24 08:16] LABS: ALBUMIN 2.8 g/dL (3.4-5.0); BILIRUBIN,TOTAL 0.5 mg/dL (0.2-1.0); MAGNESIUM 1.8 mg/dL (1.8-2.4); PHOSPHORUS 4.1 mg/dL (2.5-4.9); TOTAL PROTEIN, SERUM 6.6 g/dL (6.4-8.2)
[2018-10-24 08:17] LABS: BASOPHILS # (AUTO) 0.1 /CMM (0.0-0.2); BASOPHILS % (AUTO) 0.7 % (0.0-2.0); HEMATOCRIT 38 % (39-51); HEMOGLOBIN 11.9 g/dL (13.5-17.5); LYMPHOCYTES # (AUTO) 0.6 /CMM (0.8-4.8); LYMPHOCYTES % (AUTO) 5.2 % (20.0-44.0); MEAN CORPUSCULAR HGB CONC 32 g/dl (31.0-36.0); MEAN CORPUSCULAR VOLUME 83 fL (80-96); MONOCYTES % (AUTO) 9.5 % (2.0-12.0); NEUTROPHILS # (AUTO) 9.3 /CMM (1.8-8.9); NEUTROPHILS % (AUTO) 84.6 % (43.0-81.0); PLATELET COUNT (AUTO) 259 /CMM (150-450); RED BLOOD CELL COUNT(AUTO) 4.53 MIL/uL (4.5-6.0)
[2018-10-24] MEDS: PROPOFOL 100 ML IV PRN ×2 (08:25→16:42)
[2018-10-24] MEDS ORDERED: SIMVASTATIN 40 MG TABLET PO SCH (09:00)
[2018-10-24] MEDS: ASPIRIN 81 MG TAB.CHEW PO SCH (09:00)
[2018-10-24] MEDS ORDERED: DOBUTamine 500 MG in IV D5W 210 ML IV PRN ×3 (09:30→14:00)
[2018-10-24] MEDS: AMIODARONE HCL 200 MG TABLET PO SCH ×2 (10:27→16:50)
[2018-10-24] MEDS: methylPREDNISolone SOD SUCC 40 MG/ML VIAL IV SCH ×3 (10:28→16:45)
[2018-10-24] MEDS: PIPERACILLIN /TAZOBACTAM 3.375 G in IV D5W 100 ML IV SCH ×2 (12:44→21:09)
[2018-10-24] MEDS ORDERED: VANCOMYCIN 1.25 GM in IV NS 0.9% 500 ML IV SCH (13:00)
[2018-10-24] MEDS: ALBUTEROL FS 2.5 MG/3 ML VIAL.NEB NEB PRN (13:13)
[2018-10-24] MEDS: HYDROCODONE/APAP 5/325MG 1 EACH TABLET PO PRN (14:17)
[2018-10-24] MEDS ORDERED: DOPAMINE 800MG/D5W 250ML RTU PIGGYBACK IV ONE (16:30)
[2018-10-24] MEDS ORDERED: DOPamine 800 MG in IV D5W 250 ML IV PRN (17:00)
[2018-10-24] MEDS ORDERED: DOPamine 400 MG in IV D5W 250 ML IV PRN (17:30)
[2018-10-24] MEDS ORDERED: DOPamine 400 MG/D5W 250 ML RTU PIGGYBACK IV ONE (17:30)
--- NOTE | 2018-10-24 20:00 | NUR ---
LEAD PRESSMAN ROTO GRAVURE PRINTING NOTES RECEIVED PT IN BED, SEDATED. TELE READS SR AT 83 BPM. ON VENT VIA 7.5 ETT AT 22 CM AT LIPS, AC 18, TV 600, FIO2 60%, PEEP 5, TOLERATING WELL. OGT IN PLACE, CLAMPED, NO GASTRIC RESIDUAL. CURRAN CATH IN PLACE AND DRAINING WELL TO GRAVITY. ALL IV SITES REMOVED EXCEPT FOR PICC AT [facility]. RUNNING DOPAMINE, DOBUTAMINE AND DIPRIVAN. TURNED AND REPOSITIONED, EXTREMITIES OFFLOADED. SIDE RAILS X2. RESTRAINT IN PLACE FOR SAFETY.
--- NOTE | 2018-10-24 20:49 | NUR ---
PT INTUBATED 7.5 ETT SECURED AT 23CM AT THE LIP. PT TOLERATING VENT SETTINGS. SX'D FOR MOD AMT OF THICK STRINGER SECRETIONS. VENT ALARMS SET AND AUDIBLE. AMBU BAG AT BEDSIDE. ETT SECURE, CUFF BAR GAUGER AND LUBRICATOR TENDER. VENT PLUGGED INTO RED OUTLET. WILL CONTINUE TO MONITOR. Addendum: 10/24/18 at 2052 by CARRIE VALDERRAMA RT Amended: Links added.
[2018-10-24] MEDS: VANCOMYCIN 1 GM in IV D5W 250 ML IV SCH (21:09)
[2018-10-25] VITALS (96 sets, daily range): BP systolic 89–136; BP diastolic 29–99
[2018-10-25] MEDS: PROPOFOL 100 ML IV PRN (02:41)
[2018-10-25] MEDS: PIPERACILLIN /TAZOBACTAM 3.375 G in IV D5W 100 ML IV SCH ×3 (03:48→19:29)
[2018-10-25 04:48] LABS: BASOPHILS % (AUTO) 0.2 % (0.0-2.0); HEMATOCRIT 39 % (39-51); HEMOGLOBIN 12.8 g/dL (13.5-17.5); LYMPHOCYTES # (AUTO) 0.5 /CMM (0.8-4.8); LYMPHOCYTES % (AUTO) 5.9 % (20.0-44.0); MEAN CORPUSCULAR HGB CONC 33 g/dl (31.0-36.0); MEAN CORPUSCULAR VOLUME 82 fL (80-96); MONOCYTES # (AUTO) 0.2 /CMM (0.1-1.30); NEUTROPHILS % (AUTO) 90.9 % (43.0-81.0); PLATELET COUNT (AUTO) 248 /CMM (150-450); RED BLOOD CELL COUNT(AUTO) 4.77 MIL/uL (4.5-6.0); WHITE BLOOD COUNT (AUTO) 7.7 K/uL (4.3-11.0)
[2018-10-25 05:08] LABS: ALBUMIN 2.6 g/dL (3.4-5.0); BILIRUBIN,TOTAL 0.9 mg/dL (0.2-1.0); CALCIUM, SERUM 8.5 mg/dL (8.5-10.1); CREATININE 1.3 mg/dL (0.6-1.3); MAGNESIUM 1.9 mg/dL (1.8-2.4); POTASSIUM 3.3 mmol/L (3.5-5.1); TOTAL PROTEIN, SERUM 6.7 g/dL (6.4-8.2)
--- NOTE | 2018-10-25 05:30 | NUR ---
MORPHOLOGY TEACHER NOTES VENT ALARM SOUNDED. PATIENT FOUND TO HAVE SELF EXTUBATED WHILE IN RESTRAINTS BY LEANING FORWARD TOWARDS HIS HANDS UNTIL HE WAS ABLE TO GRASP THE TUBE. DIPRIVAN WAS STOPPED. RT AT BEDSIDE, PATIENT WAS IMMEDIATELY PLACED ON NRB MASK AT 15 LPM. PATIENT'S O2 SATURATION HELD WNL AT >95%. NO RESPIRATORY DISTRESS NOTED. PATIENT IS ALERT AND ORIENTED X3, STATING HE DOES NOT WANT TO BE REINTUBATED. RESTRAINTS REMOVED PATIENT IS A/O X3 AND ABLE TO MAKE DECISIONS. PATIENT EXPRESSES WISH TO STOP EVERYTHING SO HE CAN LEAVE. EDUCATION REGARD NECESSARY MEDICATION CURRENTLY IN USE TO MAINTAIN BLOOD PRESSURE WAS GIVEN. AT THIS POINT THE PATIENT, STATED HE DOES NOT WANT MEXICANS OR ARMENIANS TREATING HIM, HE WANTS ONLY WHITE MEN. PATIENT REMOVED BLOOD PRESSURE CUFF AND REFUSED TO ALLOW ME TO PLACE IT BACK. A WHITE MALE RN FROM [facility] WAS CALLED TO TALK TO HIM AND WAS ABLE TO CONVINCE THE PATIENT TO REAPPLY THE BLOOD PRESSURE CUFF.
--- NOTE | 2018-10-25 05:31 | NUR ---
VENT ALARMING, I WALK INSIDE THE ROOM AND FOUND PT SELF EXTUBATED HIMSELF. CALLED RN AT BEDSIDE AND [employer]. PT NOT IN DISTRESS. PT TALKING ASKING FOR BREAKFAST. PLACED PT ON NRB. O2 SAT 100%. WILL INDORSE TO DAY SHIFT RT. Addendum: 10/25/18 at 0538 by CARRIE VALDERRAMA RT Amended: Links added.
[2018-10-25] MEDS: VANCOMYCIN 1 GM in IV D5W 250 ML IV SCH ×3 (08:38→20:15)
[2018-10-25] MEDS: ASPIRIN 81 MG TAB.CHEW PO SCH (09:00)
[2018-10-25] MEDS: POTASSIUM CL. PREMIX PERIPHER. 50 ML IV SCH ×4 (09:05→11:51)
[2018-10-25] MEDS ORDERED: POTASSIUM CHLORIDE 20 MEQ TAB.PRT.SR PO ONE (10:30)
[2018-10-25] MEDS: AMIODARONE HCL 200 MG TABLET PO SCH ×2 (10:45→17:26)
[2018-10-25] MEDS: ENOXAPARIN SODIUM 40 MG/0.4 ML DISP.SYRIN SQ SCH (10:46)
[2018-10-25] MEDS: methylPREDNISolone SOD SUCC 40 MG/ML VIAL IV SCH ×3 (10:46→17:26)
[2018-10-25] MEDS: HYDROCODONE/APAP 5/325MG 1 EACH TABLET PO PRN ×2 (10:47→19:27)
[2018-10-25] MEDS ORDERED: DOPamine 800 MG in IV D5W 250 ML IV PRN (12:30)
[2018-10-25] MEDS ORDERED: OLANZAPINE 2.5 MG TABLET PO PRN ×2 (14:30)
[2018-10-25] MEDS: LACTOBACILLUS RHAMNOSUS GG 1 EACH CAP.SPRINK PO SCH (17:27)
--- NOTE | 2018-10-25 20:16 | NUR ---
SHOEBLACK NOTES RECEIVED PT IN BED, AWAKE, EASILY AGITATED AND EXPRESSING HIS HATE TOWARDS ARMENIANS. O2 SUPPLEMENTATION VIA NC AT 6 LPM, SPO2 FLUCUATES BETWEEN 85-95%, REFUSING ANY TYPE OF OXYGEN MASK. REFUSES TO LISTEN TO EDUCATION REGARDING OXYGEN NEEDS. COMPLAINING OF 8/10 PAIN AT HIS THROAT, MOST LIKELY DUE TO SELF-EXTUBATION ON 10/25/18 AT 0530. HAS AGREED TO LEAVE THE VITALS MONITORING DEVICE ON AND AGREES TO LEAVE THE MEDICATION INFUSION AND NOT PULL OUT ANY LINES. CURRAN CATH IN PLACE, DRAINING WELL TO GRAVITY. SIDE RAILS X2, CALL LIGHT WITHIN REACH. CONTINUOUSLY ASKING ABOUT HIS JACKET'S WHEREABOUTS. NO JACKET WAS LISTED ON THE BELONGINGS INVENTORY DURING ADMISSION. AMBULANCE INFORMATION PROVIDED AND SUGGESTED HE CAN FOLLOW UP WITH THEM. REFUSED TO SPEAK WITH MAINTENANCE DISPATCHER AT THIS TIME.
[2018-10-26] VITALS (47 sets, daily range): BP systolic 111–183; BP diastolic 68–123
[2018-10-26] MEDS: PIPERACILLIN /TAZOBACTAM 3.375 G in IV D5W 100 ML IV SCH ×3 (04:19→20:51)
[2018-10-26 05:05] LABS: CALCIUM, SERUM 8.3 mg/dL (8.5-10.1); CREATININE 1.1 mg/dL (0.6-1.3); POTASSIUM 5.4 mmol/L (3.5-5.1)
[2018-10-26] MEDS: FUROSEMIDE 40 MG/4 ML VIAL IV SCH ×3 (06:52→14:05)
--- NOTE | 2018-10-26 07:15 | NUR ---
RN INITIAL NOTES RECEIVED PT AWAKE, A/OX4. ON 02 AT 4LPM VIA NC. NO SOB NOTED. HOB ELEVATED. DENIES ANY PAIN. ILIANA PICC IN PLACE. FC IN PLACE. NO HEMATURIA NOTED. PT COMFORTABLE. PT CLEAN AND DRY. CALL LIGHT WITHIN REACH. WILL MONITOR.
[2018-10-26 07:57] LABS: BASOPHILS # (AUTO) 0.1 /CMM (0.0-0.2); BASOPHILS % (AUTO) 0.6 % (0.0-2.0); HEMATOCRIT 38 % (39-51); HEMOGLOBIN 11.8 g/dL (13.5-17.5); LYMPHOCYTES # (AUTO) 0.3 /CMM (0.8-4.8); MEAN CORPUSCULAR HGB CONC 31 g/dl (31.0-36.0); MEAN CORPUSCULAR VOLUME 84 fL (80-96); MONOCYTES # (AUTO) 0.3 /CMM (0.1-1.30); MONOCYTES % (AUTO) 3.4 % (2.0-12.0); NEUTROPHILS # (AUTO) 9.5 /CMM (1.8-8.9); PLATELET COUNT (AUTO) 261 /CMM (150-450); RED BLOOD CELL COUNT(AUTO) 4.51 MIL/uL (4.5-6.0); WHITE BLOOD COUNT (AUTO) 10.2 K/uL (4.3-11.0)
[2018-10-26 08:05] LABS: PHOSPHORUS 4.2 mg/dL (2.5-4.9)
[2018-10-26] MEDS: AMIODARONE HCL 200 MG TABLET PO SCH ×2 (08:14→17:10)
[2018-10-26] MEDS: methylPREDNISolone SOD SUCC 40 MG/ML VIAL IV SCH ×3 (08:14→17:01)
[2018-10-26] MEDS: LACTOBACILLUS RHAMNOSUS GG 1 EACH CAP.SPRINK PO SCH ×2 (08:14→17:01)
[2018-10-26] MEDS: VANCOMYCIN 1 GM in IV D5W 250 ML IV SCH (08:14)
[2018-10-26] MEDS: ASPIRIN 81 MG TAB.CHEW PO SCH (08:14)
[2018-10-26] MEDS: ENOXAPARIN SODIUM 40 MG/0.4 ML DISP.SYRIN SQ SCH (08:15)
[2018-10-26 09:10] LABS: ABG BASE EXCESS 3.2 mmol/L; ABG OXYGEN SATURATION 96.2 % (92.0-98.5); ABG PCO2 48.5 mmHg (35.0-45.0); ABG PH 7.393 (7.350-7.450); ABG PO2 87.3 mmHg (75.0-100.0); AaDO2 84.1 mmHg; COHb 0.9 % (0.5-1.5); MetHb 0.5 % (0.0-1.5); O2Hb 94.9 % (94.0-97.0); SITE, ABG Right Radial; VENT MODE, BG NASAL CANNULA
--- NOTE | 2018-10-26 10:00 | NUR ---
RN NOTES 0910 SEEN AND EXAMINED BY DR PASTOR. PT ON 02 VIA VA. HOB ELEVATED. NO SOB NOTED. MD AWARE OF CURRENT LAB VALUES, CXR AND ABG RESULT. NO ORDER MADE 1000 SEEN AND EXAMINED BY DR MORALES. PT AWARE OF LAB VALUES, POTASSIUM 5.4. PT HAS LASIX ORDER X 3 DOSES. ALSO AWARE OF CXRT RESULT. PT TOLERATING 02 VIA VA. NO SOB NOTED. WILL CONTINUE TO MONITOR
[2018-10-26] MEDS: IPRATROPIUM NEB FS 0.5 MG/2.5 ML AMPUL.NEB NEB SCH ×5 (10:10→23:55)
[2018-10-26] MEDS: ALBUTEROL FS 2.5 MG/3 ML VIAL.NEB NEB PRN (10:11)
[2018-10-26] MEDS: CLONIDINE HCL 0.1 MG TABLET PO PRN (11:30)
--- NOTE | 2018-10-26 15:38 | NUR ---
Social service consult requested by Dr. Fleming for homelessness. Pt. is a 53 year old male who was admitted to [facility] ICU for respiratory failure. SW met with pt. bedside with ICU CRAlexys Flores. Pt. appears disheveled and unkempt. Pt. is non-complaint and uncooperative with SW stating, " I don't want to talk to you." SW is familiar with the pt. from previous admissions on the Med Surg floor [address]. According to the nurses, pt. is hostile, racially discriminatory and telling them, " to go back to their country." SW will reattempt to assess pt. prior to discharge from [facility].
--- NOTE | 2018-10-26 20:00 | NUR ---
RN INITIAL DEMETRIS NOTES RECEIVED PT AWAKE, A/OX4. ON 02 AT 3LPM VIA NC. NO SOB NOTED. HOB ELEVATED. DENIES ANY PAIN, AGGRESSIVE, NON COMPLIANT, USING PROFERNITY TOWARD STAFF. ILIANA PICC IN PLACE. FC IN PLACE. NO HEMATURIA NOTED. PT COMFORTABLE. PT CLEAN AND DRY. CALL LIGHT WITHIN REACH. WILL MONITOR.
[2018-10-26] MEDS: MUPIROCIN OINT 2% 22 GM TUBE SCH (20:38)
[2018-10-26] MEDS: LISINOPRIL (20MG) 20 MG TABLET PO SCH (20:40)
[2018-10-26] MEDS: ISOSORBIDE DINITRATE (20MG) 20 MG TABLET PO SCH (20:41)
[2018-10-27] VITALS: BP 123/75
[2018-10-27] MEDS: IPRATROPIUM NEB FS 0.5 MG/2.5 ML AMPUL.NEB NEB SCH ×6 (02:47→23:30)
[2018-10-27 04:00] VITALS: BP 123/75
[2018-10-27] MEDS: PIPERACILLIN /TAZOBACTAM 3.375 G in IV D5W 100 ML IV SCH ×3 (04:17→21:08)
--- NOTE | 2018-10-27 05:46 | NUR ---
RN CLOSING DEMETRIS NOTES ENDORSED PT AWAKE, A/OX4. ON 02 AT 3LPM VIA NC. NO SOB NOTED. HOB ELEVATED. DENIES ANY PAIN, AGGRESSIVE, NON COMPLIANT, USING PROFERNITY TOWARD STAFF, OFFERED TO BE CLEANED X3, REFUSED. ILIANA PICC IN PLACE. FC IN PLACE. NO HEMATURIA NOTED. PT COMFORTABLE. PT CLEAN AND DRY. CALL LIGHT WITHIN REACH. WILL MONITOR.
[2018-10-27 07:03] LABS: BASOPHILS % (AUTO) 0.3 % (0.0-2.0); HEMATOCRIT 39 % (39-51); HEMOGLOBIN 12.1 g/dL (13.5-17.5); LYMPHOCYTES # (AUTO) 0.7 /CMM (0.8-4.8); LYMPHOCYTES % (AUTO) 5.7 % (20.0-44.0); MEAN CORPUSCULAR HGB CONC 31 g/dl (31.0-36.0); MEAN CORPUSCULAR VOLUME 83 fL (80-96); MONOCYTES # (AUTO) 1.1 /CMM (0.1-1.30); MONOCYTES % (AUTO) 8.3 % (2.0-12.0); NEUTROPHILS # (AUTO) 11.3 /CMM (1.8-8.9); NEUTROPHILS % (AUTO) 85.7 % (43.0-81.0); PLATELET COUNT (AUTO) 381 /CMM (150-450); RED BLOOD CELL COUNT(AUTO) 4.67 MIL/uL (4.5-6.0); WHITE BLOOD COUNT (AUTO) 13.1 K/uL (4.3-11.0)
[2018-10-27 07:21] LABS: ALBUMIN 2.5 g/dL (3.4-5.0); BILIRUBIN,TOTAL 0.3 mg/dL (0.2-1.0); CALCIUM, SERUM 8.5 mg/dL (8.5-10.1); CREATININE 1.3 mg/dL (0.6-1.3); MAGNESIUM 1.9 mg/dL (1.8-2.4); PHOSPHORUS 3.9 mg/dL (2.5-4.9); POTASSIUM 4.5 mmol/L (3.5-5.1); TOTAL PROTEIN, SERUM 6.9 g/dL (6.4-8.2)
[2018-10-27] MEDS: ALBUTEROL FS 2.5 MG/3 ML VIAL.NEB NEB PRN ×2 (07:27→11:35)
--- NOTE | 2018-10-27 07:30 | NUR ---
DEMETRIS RN AM NOTES RECEIVED PT IN BED, AWAKE BUT EYES CLOSED, ANSWERS QUESTIONS, A/OX4. ON 02 AT 3LPM VIA NC. NO SOB NOTED. HOB ELEVATED. SR HR 75 ON MONITOR, DENIES ANY PAIN, AGGRESSIVE, VERBALLY ABUSIVE, NON COOPERATIVE, USING PROFERNITY TOWARD STAFF. ILIANA PICC IN PLACE. FC IN PLACE. NO HEMATURIA NOTED. PT COMFORTABLE. PT CLEAN AND DRY. CALL LIGHT WITHIN REACH. WILL MONITOR.
[2018-10-27 08:00] VITALS: BP 132/92
--- NOTE | 2018-10-27 09:30 | NUR ---
DEMETRIS RN NOTES DUE MEDS GIVEN BY SOON CHARGE NURSE.
[2018-10-27] MEDS: LACTOBACILLUS RHAMNOSUS GG 1 EACH CAP.SPRINK PO SCH ×2 (09:49→16:30)
[2018-10-27] MEDS: methylPREDNISolone SOD SUCC 40 MG/ML VIAL IV SCH (09:49)
[2018-10-27] MEDS: ASPIRIN 81 MG TAB.CHEW PO SCH (09:50)
[2018-10-27] MEDS: LISINOPRIL (20MG) 20 MG TABLET PO SCH ×2 (09:50→21:09)
[2018-10-27] MEDS: AMIODARONE HCL 200 MG TABLET PO SCH ×2 (09:50→16:30)
[2018-10-27] MEDS: ISOSORBIDE DINITRATE (20MG) 20 MG TABLET PO SCH ×2 (09:50→21:09)
[2018-10-27] MEDS: ENOXAPARIN SODIUM 40 MG/0.4 ML DISP.SYRIN SQ SCH (09:52)
[2018-10-27] MEDS: MUPIROCIN OINT 2% 22 GM TUBE SCH ×2 (09:54→21:20)
[2018-10-27] MEDS: FUROSEMIDE 40 MG TABLET PO SCH (09:55)
[2018-10-27 12:00] VITALS: BP 119/79
[2018-10-27 16:00] VITALS: BP 140/90
--- NOTE | 2018-10-27 18:45 | NUR ---
DEMETRIS RN CLOSING NOTES PT AWAKE, WITH VISITOR AT BEDSIDE, REFUSED TO IDENTIFY GUEST, A/OX4. ON 02 AT 3LPM VIA NC. NO SOB NOTED. HOB ELEVATED. DENIES ANY PAIN, REMAINS VERBALLY ABUSIVE. NON COMPLIANT,TOOK A SHOWER EARLIER. ILIANA PICC IN PLACE. FC IN PLACE. NO HEMATURIA NOTED. PT COMFORTABLE. PT CLEAN AND DRY. CALL LIGHT WITHIN REACH. ALL NEEDS MET. CALL LIGHT WITHIN REACH. WILL ENDORSE TO NEXT SHIFT FOR ARACELI.
[2018-10-27 20:00] VITALS: BP 150/88
[2018-10-28] VITALS (7 sets, daily range): BP systolic 104–148; BP diastolic 56–97
[2018-10-28] MEDS: IPRATROPIUM NEB FS 0.5 MG/2.5 ML AMPUL.NEB NEB SCH ×7 (03:30→23:23)
[2018-10-28] MEDS: PIPERACILLIN /TAZOBACTAM 3.375 G in IV D5W 100 ML IV SCH ×3 (03:47→20:27)
--- NOTE | 2018-10-28 06:17 | NUR ---
RN CLOSING DEMETRIS NOTES ENDORSED PT AWAKE, A/OX4. ON 02 AT 3LPM VIA NC. NO SOB NOTED. HOB ELEVATED. DENIES ANY PAIN, AGGRESSIVE, NON COMPLIANT, USING PROFERNITY TOWARD STAFF. ILIANA PICC IN PLACE. FC IN PLACE. NO HEMATURIA NOTED. PT COMFORTABLE. PT CLEAN AND DRY. CALL LIGHT WITHIN REACH. WILL MONITOR.
[2018-10-28 06:59] LABS: CALCIUM, SERUM 8.4 mg/dL (8.5-10.1); CREATININE 1.2 mg/dL (0.6-1.3); POTASSIUM 4.9 mmol/L (3.5-5.1)
[2018-10-28] MEDS: AMIODARONE HCL 200 MG TABLET PO SCH ×2 (08:25→16:19)
[2018-10-28] MEDS: ISOSORBIDE DINITRATE (20MG) 20 MG TABLET PO SCH ×2 (08:25→20:43)
[2018-10-28] MEDS: LACTOBACILLUS RHAMNOSUS GG 1 EACH CAP.SPRINK PO SCH ×2 (08:25→16:18)
[2018-10-28] MEDS: FUROSEMIDE 40 MG TABLET PO SCH (08:25)
[2018-10-28] MEDS: ASPIRIN 81 MG TAB.CHEW PO SCH (08:26)
[2018-10-28] MEDS: LISINOPRIL (20MG) 20 MG TABLET PO SCH ×2 (08:26→20:43)
[2018-10-28] MEDS: methylPREDNISolone SOD SUCC 40 MG/ML VIAL IV SCH (08:26)
[2018-10-28] MEDS: ENOXAPARIN SODIUM 40 MG/0.4 ML DISP.SYRIN SQ SCH (08:27)
[2018-10-28] MEDS: MUPIROCIN OINT 2% 22 GM TUBE SCH ×2 (08:32→20:44)
[2018-10-28] MEDS: ALBUTEROL FS 2.5 MG/3 ML VIAL.NEB NEB PRN (08:46)
--- NOTE | 2018-10-28 09:00 | NUR ---
RN NOTE PT REFUSED TO GO TO ALF WHEN OFFERED. CLOTHING CONSULTANT AWARE.
[2018-10-28] MEDS: FUROSEMIDE 100 MG/10 ML VIAL IV SCH ×3 (11:39→19:05)
--- NOTE | 2018-10-28 19:40 | NUR ---
SPINDLE CARVER INITIAL NOTES, PATIENT IN BED SLEEPING AT THIS TIME, BUT EASILY AROUSABLE TO VERBAL STIMULI, ON 02 AT 3LPM VIA NC, NO SOB/ACUTE DISTRESS NOTED AT THIS TIME, ILIANA PICC PATENT AND INTACT, FC IN PLACE, DRAINING YELLOW URINE BY GRAVITY, PATENCY INTACT, CALL LIGHT WITHIN REACH, FAMILY AT BEDSIDE, WILL CONTINUE MONITOR.
--- NOTE | 2018-10-28 21:00 | NUR ---
FACILITIES MAINTENANCE MANAGER NOTES, ISOSORBIDE AND LISINOPRIL NON ADMINISTERED, BP 104/56, AND PER PATIENT REQUESTED TOO, DUE TO BP AT THIS TIME.
--- NOTE | 2018-10-28 21:30 | NUR ---
RN NOTES, INFORMED PATIENT ABOUT MONDAY PICTURES FOR SKIN ISSUES AND IF IT WAS OK TO PROCEED TO TAKE PICTURES, AND HE REFUSED, EXPLAIN RISKS AND BENEFITS, STILL REFUSED, CHARGE NURSE AWARE.
[2018-10-29] VITALS: BP 115/60
[2018-10-29] MEDS: IPRATROPIUM NEB FS 0.5 MG/2.5 ML AMPUL.NEB NEB SCH ×6 (03:39→23:30)
[2018-10-29] MEDS: PIPERACILLIN /TAZOBACTAM 3.375 G in IV D5W 100 ML IV SCH ×3 (04:13→22:06)
[2018-10-29 06:24] LABS: BASOPHILS # (AUTO) 0.1 /CMM (0.0-0.2); BASOPHILS % (AUTO) 0.7 % (0.0-2.0); EOSINOPHILS % (AUTO) 0.1 % (0.0-6.0); HEMATOCRIT 48 % (39-51); HEMOGLOBIN 14.8 g/dL (13.5-17.5); LYMPHOCYTES # (AUTO) 2.5 /CMM (0.8-4.8); LYMPHOCYTES % (AUTO) 20.2 % (20.0-44.0); MEAN CORPUSCULAR HGB CONC 31 g/dl (31.0-36.0); MEAN CORPUSCULAR VOLUME 83 fL (80-96); MONOCYTES # (AUTO) 1.3 /CMM (0.1-1.30); MONOCYTES % (AUTO) 10.6 % (2.0-12.0); NEUTROPHILS # (AUTO) 8.4 /CMM (1.8-8.9); NEUTROPHILS % (AUTO) 68.4 % (43.0-81.0); PLATELET COUNT (AUTO) 414 /CMM (150-450); RED BLOOD CELL COUNT(AUTO) 5.72 MIL/uL (4.5-6.0); WHITE BLOOD COUNT (AUTO) 12.2 K/uL (4.3-11.0)
--- NOTE | 2018-10-29 06:28 | NUR ---
MANAGER ADOBE CLOSING NOTES, PATIENT IN BED SLEEPING AT THIS TIME, BUT EASILY AROUSABLE TO VERBAL STIMULI, ON 02 AT 3LPM VIA NC, NO SOB/ACUTE DISTRESS NOTED AT THIS TIME, ILIANA PICC PATENT AND INTACT, FC IN PLACE, DRAINING YELLOW URINE BY GRAVITY, REFUSED 0400 VS, CALL LIGHT WITHIN REACH, NO CHANGE IN CONDITION DURING THE NIGHT, WILL ENDORSE CONTINUITY OF CARE TO ONCOMING NURSE,
[2018-10-29 06:43] LABS: ALBUMIN 2.8 g/dL (3.4-5.0); BILIRUBIN,TOTAL 0.3 mg/dL (0.2-1.0); CALCIUM, SERUM 8.7 mg/dL (8.5-10.1); CREATININE 1.5 mg/dL (0.6-1.3); MAGNESIUM 2.1 mg/dL (1.8-2.4); PHOSPHORUS 5.9 mg/dL (2.5-4.9); POTASSIUM 4.4 mmol/L (3.5-5.1); TOTAL PROTEIN, SERUM 7.8 g/dL (6.4-8.2)
[2018-10-29 08:00] VITALS: BP 125/79
[2018-10-29] MEDS: LACTOBACILLUS RHAMNOSUS GG 1 EACH CAP.SPRINK PO SCH ×2 (09:54→16:08)
[2018-10-29] MEDS: methylPREDNISolone SOD SUCC 40 MG/ML VIAL IV SCH (09:54)
[2018-10-29] MEDS: AMIODARONE HCL 200 MG TABLET PO SCH ×2 (09:55→16:08)
[2018-10-29] MEDS: FUROSEMIDE 40 MG TABLET PO SCH (09:55)
[2018-10-29] MEDS: LISINOPRIL (20MG) 20 MG TABLET PO SCH ×2 (09:55→22:08)
[2018-10-29] MEDS: ASPIRIN 81 MG TAB.CHEW PO SCH (09:55)
[2018-10-29] MEDS: ISOSORBIDE DINITRATE (20MG) 20 MG TABLET PO SCH ×2 (09:56→22:08)
[2018-10-29] MEDS: ENOXAPARIN SODIUM 40 MG/0.4 ML DISP.SYRIN SQ SCH (09:58)
[2018-10-29] MEDS: MUPIROCIN OINT 2% 22 GM TUBE SCH ×2 (10:02→22:09)
[2018-10-29 16:00] VITALS: BP 110/53
[2018-10-29 20:00] VITALS: BP 113/62
--- NOTE | 2018-10-29 20:00 | NUR ---
DEMETRIS RN INITIAL NOTES PATIENT IN BED SLEEPING AT THIS TIME, BUT EASILY AROUSAL TO VERBAL STIMULI, ON 02 AT 3LPM VIA NC, NO SOB/ACUTE DISTRESS NOTED AT THIS TIME, ILIANA PICC PATENT AND INTACT, FC IN PLACE, DRAINING YELLOW URINE BY GRAVITY, PATENCY INTACT, CALL LIGHT WITHIN REACH, FAMILY AT BEDSIDE, ALL SAFETY MEASURES ARE IMPLEMENTED. WILL CONTINUE MONITOR.
--- NOTE | 2018-10-30 02:00 | NUR ---
RN NOTES PATIENT WAS ASKED TO HAVE BED BATH 3 TIMES AND ALL 3 TIMES REFUSED BED BATH. FAMILY MEMBER IS STILL AT THE BEDSIDE. PATIENT SAID HE WILL HAVE IT IN THE MORNING. WILL ENDORSE IT AM SHIFT RN AND DRAIN TILE PRESS OPERATOR.
[2018-10-30] MEDS: IPRATROPIUM NEB FS 0.5 MG/2.5 ML AMPUL.NEB NEB SCH ×6 (03:30→23:30)
[2018-10-30 04:00] VITALS: BP 165/97
[2018-10-30] MEDS: PIPERACILLIN /TAZOBACTAM 3.375 G in IV D5W 100 ML IV SCH ×3 (04:30→20:29)
[2018-10-30] MEDS: CLONIDINE HCL 0.1 MG TABLET PO PRN (04:31)
[2018-10-30 07:19] LABS: CALCIUM, SERUM 8.4 mg/dL (8.5-10.1); CREATININE 1.5 mg/dL (0.6-1.3); POTASSIUM 4.5 mmol/L (3.5-5.1)
--- NOTE | 2018-10-30 07:30 | NUR ---
RN NOTES RECEIVED PATIENT SLEEPING IN BED, EASILY AWAKEN BY NOISE, A/0X4, ABLE TO MAKE NEEDS KNOWN, ON 02 SUPPORT AT 3LPM VIA NC. NO SOB NOTED. SATURATING WELL. DENIES CHEST PAIN OR ANY KIND OF PAIN. RFA G [address] AND PATENT[address] WITH ONGOING ATB, PREVIOUSLY HANGED BY THE OUTGOING NURSE. FC IN PLACE, DRAINING WELL VIA GRAVITY TO DARK YELLOW URINE. NO HEMATURIA NOTED. PATIENT WITH FOUL COMMENTS TOWARDS STAFF. SAFETY MEASURES MAINTAINED AND OBSERVED. ENCOURAGE TO CALL FOR ASSISTANCE. CALL LIGHT PLACED WITHIN REACH. WILL MONITOR.
[2018-10-30 08:00] VITALS: BP 131/62
[2018-10-30] MEDS: LACTOBACILLUS RHAMNOSUS GG 1 EACH CAP.SPRINK PO SCH ×2 (08:28→16:35)
[2018-10-30] MEDS: FUROSEMIDE 40 MG TABLET PO SCH (08:29)
[2018-10-30] MEDS: methylPREDNISolone SOD SUCC 40 MG/ML VIAL IV SCH (08:29)
[2018-10-30] MEDS: ISOSORBIDE DINITRATE (20MG) 20 MG TABLET PO SCH ×2 (08:30→20:31)
[2018-10-30] MEDS: AMIODARONE HCL 200 MG TABLET PO SCH ×2 (08:31→16:35)
[2018-10-30] MEDS: ASPIRIN 81 MG TAB.CHEW PO SCH (08:31)
[2018-10-30] MEDS: MUPIROCIN OINT 2% 22 GM TUBE SCH ×2 (08:32→20:41)
[2018-10-30] MEDS: LISINOPRIL (20MG) 20 MG TABLET PO SCH ×2 (08:33→20:31)
[2018-10-30] MEDS: ENOXAPARIN SODIUM 40 MG/0.4 ML DISP.SYRIN SQ SCH (08:47)
[2018-10-30 12:00] VITALS: BP 131/62
[2018-10-30 16:00] VITALS: BP 107/63
--- NOTE | 2018-10-30 19:36 | NUR ---
RN NOTES PATIENT ENDORSED FOR CONTINUITY OF CARE. NO ACUTE CHANGES WITHIN THE SHIFT. NOT ON ANY FORM OF DISTRESS. ALL NURSING NEEDS ATTENDED AND MET. SAFETY AND ASPIRATION PRECAUTIONS KEPT IN PLACE ALL THE TIME.
[2018-10-30 20:00] VITALS: BP 103/57
[2018-10-31] MEDS: PIPERACILLIN /TAZOBACTAM 3.375 G in IV D5W 100 ML IV SCH ×3 (03:04→21:05)
[2018-10-31] MEDS: IPRATROPIUM NEB FS 0.5 MG/2.5 ML AMPUL.NEB NEB SCH ×6 (03:30→23:30)
[2018-10-31 04:00] VITALS: BP 158/83
--- NOTE | 2018-10-31 06:25 | NUR ---
MS RN NOTES AWAKE & RESPONSIVE. NOT IN ANY DISTRESS. NO SOB NOTED. DENIES ANY PAIN OR DISCOMFORT AT THIS TIME. WITH IV-HL PATENT & INTACT. WITH F/C DRAINING TO YELLOWISH OUTPUT MODERATE IN AMOUNT. AM CARE DONE. MONITORED ACCORDINGLY. CALL LIGHT WITHIN REACH. BED IN LOWEST POSITION. SR UP X2 FOR SAFETY. WILL ENDORSE TO NEXT SHIFT.
[2018-10-31 06:43] LABS: BASOPHILS # (AUTO) 0.1 /CMM (0.0-0.2); BASOPHILS % (AUTO) 0.9 % (0.0-2.0); EOSINOPHILS % (AUTO) 0.1 % (0.0-6.0); HEMATOCRIT 42 % (39-51); HEMOGLOBIN 13.1 g/dL (13.5-17.5); LYMPHOCYTES % (AUTO) 13.3 % (20.0-44.0); MEAN CORPUSCULAR HGB CONC 31 g/dl (31.0-36.0); MEAN CORPUSCULAR VOLUME 83 fL (80-96); MONOCYTES # (AUTO) 1.3 /CMM (0.1-1.30); MONOCYTES % (AUTO) 8.7 % (2.0-12.0); NEUTROPHILS # (AUTO) 11.5 /CMM (1.8-8.9); PLATELET COUNT (AUTO) 375 /CMM (150-450); RED BLOOD CELL COUNT(AUTO) 5.07 MIL/uL (4.5-6.0)
[2018-10-31 07:08] LABS: CALCIUM, SERUM 8.3 mg/dL (8.5-10.1); CREATININE 1.4 mg/dL (0.6-1.3); POTASSIUM 4.5 mmol/L (3.5-5.1)
--- NOTE | 2018-10-31 07:52 | NUR ---
RN OPENING NOTES RECEIVED PT. PT STABLE AND RESTING IN BED. A/OX4. NO S/S OF RESP DISTRESS/SOB. PT IS ON STRICT I/O WITH FLUID RESTRICTION TO AVOID CHF EXACERBATION, HOWEVER IS MOSTLY NON-COMPLIANT. PT DOES NOT APPEAR TO BE IN PAIN AT THIS TIME. IV ACCESS LOCATED ON RH 20 G CURRENTLY SL. D/C PLANNING FOR TODAY PENDING PLACEMENT PER CASE MANAGEMENT. SAFETY MEASURES IN PLACE, CALL LIGHT WITHIN REACH. WILL CONTINUE TO MONITOR.
[2018-10-31 08:00] VITALS: BP 141/90
[2018-10-31] MEDS: methylPREDNISolone SOD SUCC 40 MG/ML VIAL IV SCH (08:50)
[2018-10-31] MEDS: LISINOPRIL (20MG) 20 MG TABLET PO SCH ×2 (08:51→21:12)
[2018-10-31] MEDS: ASPIRIN 81 MG TAB.CHEW PO SCH (08:51)
[2018-10-31] MEDS: LACTOBACILLUS RHAMNOSUS GG 1 EACH CAP.SPRINK PO SCH ×2 (08:51→16:20)
[2018-10-31] MEDS: AMIODARONE HCL 200 MG TABLET PO SCH ×2 (08:51→16:20)
[2018-10-31] MEDS: FUROSEMIDE 40 MG TABLET PO SCH (08:51)
[2018-10-31] MEDS: ISOSORBIDE DINITRATE (20MG) 20 MG TABLET PO SCH ×2 (08:52→21:11)
[2018-10-31] MEDS: MUPIROCIN OINT 2% 22 GM TUBE SCH ×2 (09:09→21:10)
[2018-10-31] MEDS: ENOXAPARIN SODIUM 40 MG/0.4 ML DISP.SYRIN SQ SCH (11:30)
--- NOTE | 2018-10-31 12:10 | NUR ---
RN NOTES PT IN BED HAVING LUNCH. PER MD REQUEST, NC WITH O2 AT 2L REMOVED TO TEST IF PT IS ABLE TO TOLERATE RA. O2 SAT REMAINS WNL. WILL CONTINUE TO MONITOR AND REPORT TO HOSPITALIST AFTER ONE HOUR WITHOUT O2.
[2018-10-31 16:00] VITALS: BP 128/71
--- NOTE | 2018-10-31 18:58 | NUR ---
RN CLOSING NOTES PT IN BED RESTING. NO S/S OF RESP DISTRESS/SOB. NO C/O PAIN. PT REFUSED SNF PLACEMENT STATING " I'LL ONLY GO IF MY FRIEND CAN COME WITH ME". CM AND SS NOTIFIED. D/C HELD UNTIL TOMORROW. ALL PT NEEDS ANTICIPATED AND MET. SAFETY MEASURES IN PLACE, CALL LIGHT WITHIN REACH. WILL ENDORSE TO GROUNDSKEEPER SUPERVISOR FOR ARACELI.
[2018-10-31 20:00] VITALS: BP 159/96
--- NOTE | 2018-10-31 20:00 | NUR ---
MS/RN NOTES: RECEIVED PT. IN BED W/ GIRLFRIEND IN ROOM. W/ RH G 20 PATENT AND INTACT W/ NO S/S OF INFECTION/INFILTRATION NOTED. IV ATB. GIVEN. A/O X 4. NO S/S OF ANY RESPIRATORY DISTRESS/SOB NOTED. PT. IS STRICT I/O W/ FLUID RESTRICTION. PT. IS NOT COMPLAINT AND GETS MAD AND START CURSING W/ NURSE IF WE REMIND HIM ABOUT FLUID RESTRICTION. SAFETY MEASURES IN PLACE. CALL LIGHT W/REACH. WILL CONTINUE TO MONITOR.
[2018-11-01] MEDS: IPRATROPIUM NEB FS 0.5 MG/2.5 ML AMPUL.NEB NEB SCH ×5 (03:50→19:21)
[2018-11-01] MEDS: PIPERACILLIN /TAZOBACTAM 3.375 G in IV D5W 100 ML IV SCH ×2 (03:57→12:11)
[2018-11-01 04:00] VITALS: BP 159/96
--- NOTE | 2018-11-01 07:00 | NUR ---
RN NOTES RECEIVED PATIENT SLEEPING IN BED, EASILY AWAKEN BY NOISE, A/0X4, ABLE TO MAKE NEEDS KNOWN,. NO SOB ANY KIND OF PAIN. RFA G [address] AND PATENT. WITH ONGOING ATB, PREVIOUSLY HANGED BY THE OUTGOING NURSE. FC IN PLACE, DRAINING WELL VIA GRAVITY TO DARK YELLOW URINE. NO HEMATURIA NOTED. SAFETY MEASURES MAINTAINED AND OBSERVED. ENCOURAGE TO CALL FOR ASSISTANCE. CALL LIGHT PLACED WITHIN REACH. WILL MONITOR.
--- NOTE | 2018-11-01 07:12 | NUR ---
MS/RN NOTES: PT. REFUSED 4 AM VITALS/AM CARE. REPORT GIVEN TO NEXT SHIFT NURSE FOR ARACELI.
[2018-11-01 08:00] VITALS: BP 168/88
[2018-11-01] MEDS: methylPREDNISolone SOD SUCC 40 MG/ML VIAL IV SCH (08:39)
[2018-11-01] MEDS: ASPIRIN 81 MG TAB.CHEW PO SCH (08:40)
[2018-11-01] MEDS: MUPIROCIN OINT 2% 22 GM TUBE SCH (08:40)
[2018-11-01] MEDS: AMIODARONE HCL 200 MG TABLET PO SCH (08:40)
[2018-11-01] MEDS: LACTOBACILLUS RHAMNOSUS GG 1 EACH CAP.SPRINK PO SCH (08:40)
[2018-11-01] MEDS: FUROSEMIDE 40 MG TABLET PO SCH (08:40)
[2018-11-01] MEDS: LISINOPRIL (20MG) 20 MG TABLET PO SCH (08:40)
[2018-11-01] MEDS: ENOXAPARIN SODIUM 40 MG/0.4 ML DISP.SYRIN SQ SCH ×2 (08:41→08:50)
[2018-11-01] MEDS: ISOSORBIDE DINITRATE (20MG) 20 MG TABLET PO SCH (08:41)
[2018-11-01] MEDS ORDERED: LISI20TA61 PO (14:50)
[2018-11-01] MEDS ORDERED: AMIO200T7 PO (14:50)
[2018-11-01] MEDS ORDERED: ISOS20TA8 PO (14:50)
[2018-11-01] MEDS ORDERED: FURO40TA5 PO (14:50)
[2018-11-01] MEDS ORDERED: PRED10TA PO (14:50)
[2018-11-01] MEDS ORDERED: LACT1CAP72 PO (14:50)
[2018-11-01] MEDS ORDERED: PRED20TA PO (14:50)
[2018-11-01 16:00] VITALS: BP 93/71
--- NOTE | 2018-11-01 16:12 | NUR ---
DIANA met with pt. bedside with bilingual case manager Juanita to discuss discharge plan. Pt's girlfriend was bedside. Pt. was cooperative with SW during this visit. DIANA offered pt. [facility] placement and resources, however pt. declined all resources. Pt. will receive a TAP card upon discharge. DIANA informed pt's SWETHA Lundberg regarding pt's discharge plan. No other social service needs are requested t this time. Pt. placed Homeless patient Waiver form in pt's discharge paperwork and informed SWETHA Lundberg to have pt. sign upon discharge since pt. did not want to sign at the present moment.
--- NOTE | 2018-11-01 16:51 | NUR ---
REMOVED IV CATH INTACT . CURRAN CATH REMOVED PATIENT URINATED 200 CC POST REMOVAL.
--- NOTE | 2018-11-01 17:00 | NUR ---
PT DISCHARGED ALL FORMS AND EDUCATION GIVEN AND SIGNS FOR. TAP CARD GIVEN
== END 2018-11-01 21:59 | disposition home or self-care (01) | DRG 720 ==
LOC: ER 03:31 → ICU 05:40 → TELE-TD 10-26 17:09 → TELE1 10-28 17:46 → MEDSG1 10-29 09:47
PROVIDERS: ADMIT Internal Medicine; ATTEND Nurse Practitioner Acute Care
PROC: B548ZZA Ultrasonography of Superior Vena Cava, Guidance (ICD-10-PCS; principal; 2018-10-24)
PROC: 0BH17EZ Insertion of Endotracheal Airway into Trachea, Via Natural or Artificial Opening (ICD-10-PCS; principal; 2018-10-24)
PROC: 02HV33Z Insertion of Infusion Device into Superior Vena Cava, Percutaneous Approach (ICD-10-PCS; principal; 2018-10-24)
PROC: 5A1945Z Respiratory Ventilation, 24-96 Consecutive Hours (ICD-10-PCS; principal; 2018-10-24)
DX: A41.9 Sepsis, unspecified organism (principal); J96.21 Acute and chronic respiratory failure with hypoxia; G92 Toxic encephalopathy; I50.23 Acute on chronic systolic (congestive) heart failure; E43 Unspecified severe protein-calorie malnutrition; E87.3 Alkalosis; J15.9 Unspecified bacterial pneumonia; N17.9 Acute kidney failure, unspecified; I13.0 Hypertensive heart and chronic kidney disease with heart failure and stage 1 through stage 4 chronic kidney disease, or unspecified chronic kidney disease; I48.91 Unspecified atrial fibrillation; J96.22 Acute and chronic respiratory failure with hypercapnia; E78.5 Hyperlipidemia, unspecified; E87.6 Hypokalemia; F25.9 Schizoaffective disorder, unspecified; J44.0 Chronic obstructive pulmonary disease with (acute) lower respiratory infection; Z59.0 Homelessness; Z87.891 Personal history of nicotine dependence; D63.8 Anemia in other chronic diseases classified elsewhere; I42.9 Cardiomyopathy, unspecified; E88.09 Other disorders of plasma-protein metabolism, not elsewhere classified; Z68.27 Body mass index [BMI] 27.0-27.9, adult; F19.10 Other psychoactive substance abuse, uncomplicated; F05 Delirium due to known physiological condition; F40.240 Claustrophobia; N18.9 Chronic kidney disease, unspecified
CPT/HCPCS: 31720; 36415; 36569; 36600; 71045-TC; 80048-TC; 80053-TC; 80061-TC; 80076-TC; 80202-TC; 80305; 81000-TC; 82803-TC; 82962-TC; 83605-TC; 83735-TC; 83880; 84100-TC; 84484-TC; 85025-TC; 87040-TC; 87081-TC; 87086-TC; 94002-TC; 94003-TC; 94660; 94760-TC; 94799-TC; 99082-TC; A4606; A6403; C1751; G0378; J0330; J0696; J1250; J1265; J1650; J1940; J2543; J2920; J3370; J3480; J3490; J7030; J7040; J7050; J7060; Z7610

== ENCOUNTER 2019-04-01 04:58 | Emergency (ER) | payer MEDICAID, OTHER ==
[~2019-04-01] VITALS: Ht 165.1 cm; Wt 77.1 kg
[~2019-04-01 04:58] MED LIST changes: +ISOS20TA8 PO; +LACT1CAP72 PO; +LISI20TA61 PO; +PRED10TA PO
--- NOTE | 2019-04-01 05:26 | NUR ---
PT BIBSELF FROM STREET C/O "I FEEL LIKE MY PRESSURE IS HIGH". DENIES CP/SOB. PATIENT STATES HE RAN OUT OF BP MEDICATION. PT ON MONITOR IN BED 13. WILL CONTINUE TO MONITOR.
--- NOTE | 2019-04-01 06:11 | NUR ---
TECH AT BEDSIDE FOR EKG
[2019-04-01] MEDS ORDERED: ASPIRIN 325 MG TABLET ONE (06:12)
[2019-04-01] MEDS ORDERED: NITROGLYCERIN PACKET 1 GM PACKET ONE (06:12)
[2019-04-01] MEDS ORDERED: FUROSEMIDE 40 MG/4 ML VIAL ONE (06:12)
[2019-04-01] MEDS: NITROGLYCERIN PACKET 1 GM PACKET TD ONE (06:29)
[2019-04-01] MEDS: ASPIRIN 325 MG TABLET PO ONE (06:29)
[2019-04-01] MEDS: FUROSEMIDE 40 MG/4 ML VIAL IV ONE (06:29)
--- NOTE | 2019-04-01 06:29 | NUR ---
RADIOLOGY AT BEDSIDE FOR XRAY
[2019-04-01 06:37] LABS: BASOPHILS # (AUTO) 0.1 /CMM (0.0-0.2); BASOPHILS % (AUTO) 1.1 % (0.0-2.0); EOSINOPHILS % (AUTO) 0.7 % (0.0-6.0); HEMATOCRIT 39 % (39-51); HEMOGLOBIN 12.8 g/dL (13.5-17.5); LYMPHOCYTES # (AUTO) 1.3 /CMM (0.8-4.8); LYMPHOCYTES % (AUTO) 14.9 % (20.0-44.0); MEAN CORPUSCULAR HGB CONC 32 g/dl (31.0-36.0); MEAN CORPUSCULAR VOLUME 86 fL (80-96); MONOCYTES # (AUTO) 0.9 /CMM (0.1-1.30); MONOCYTES % (AUTO) 9.8 % (2.0-12.0); NEUTROPHILS # (AUTO) 6.5 /CMM (1.8-8.9); NEUTROPHILS % (AUTO) 73.5 % (43.0-81.0); PLATELET COUNT (AUTO) 240 /CMM (150-450); RED BLOOD CELL COUNT(AUTO) 4.59 MIL/uL (4.5-6.0); WHITE BLOOD COUNT (AUTO) 8.8 K/uL (4.3-11.0)
[2019-04-01 06:46] LABS: CALCIUM, SERUM 8.4 mg/dL (8.5-10.1); CREATININE 1.1 mg/dL (0.6-1.3); POTASSIUM 4.5 mmol/L (3.5-5.1)
[2019-04-01 06:50] LABS: ALBUMIN 3.6 g/dL (3.4-5.0); BILIRUBIN,DIRECT 0.1 mg/dL (0.0-0.2); BILIRUBIN,TOTAL 0.4 mg/dL (0.2-1.0); TOTAL PROTEIN, SERUM 7.5 g/dL (6.4-8.2)
--- NOTE | 2019-04-01 07:10 | NUR ---
REPORT GIVEN TO SWETHA LEGER FOR ARACELI
[2019-04-01] MEDS ORDERED: SIMV40TA5 PO (07:46)
[2019-04-01] MEDS ORDERED: LISI-603 PO (07:46)
[2019-04-01] MEDS ORDERED: AMIO200T4 PO (07:46)
[2019-04-01] MEDS ORDERED: ASPI-605 PO (07:46)
[2019-04-01] MEDS ORDERED: ALBU18HF2 IH (07:46)
[2019-04-01] MEDS ORDERED: FURO-144 PO (07:46)
--- NOTE | 2019-04-01 08:04 | NUR ---
SPOKE WITH POST TRONIC MACHINE OPERATOR FOR ID CARE. MD WILL CALL BACK FOR DOC TO DOC
--- NOTE | 2019-04-01 08:30 | NUR ---
PT ACCEPTED BY DR. LANGLEY AT [facility]
[2019-04-01 08:33] VITALS: BP 149/100
--- NOTE | 2019-04-01 10:53 | NUR ---
TRANSFER INFO: ROOM 930-1 NUMBER FOR REPORT [phone] ETA AT [address] [facility] [address] ESCOBAR ACCEPTING
--- NOTE | 2019-04-01 11:26 | NUR ---
report given to leonardo alberts for saravanan; pt will be transferred to [facility] via private amb
--- NOTE | 2019-04-01 12:12 | NUR ---
pt left in stable condition via private ambulance en route to the [facility]. vss, nad noted. report given to ambulance staff regarding pt's disposition
== END 2019-04-01 12:28 | disposition home or self-care (01) ==
LOC: ER 05:00
DX: I11.0 Hypertensive heart disease with heart failure (principal); I50.9 Heart failure, unspecified; R07.89 Other chest pain; Z91.013 Allergy to seafood; Z59.0 Homelessness; Z79.899 Other long term (current) drug therapy; Z79.82 Long term (current) use of aspirin
CPT/HCPCS: 36415; 71045; 80048; 80076; 83880; 84484; 85025; 93005; 96374; 99284; J1940

== ENCOUNTER 2019-12-01 13:52 | Emergency (ER) | payer OTHER ==
[~2019-12-01] VITALS: Ht 165.1 cm; Wt 86.2 kg
[~2019-12-01 13:52] MED LIST changes: +ALBU18HF2 IH; -ALBU18HF2 INH; +AMIO200T4 PO; -AMIO200T7 PO; -ASPI-1169 PO; +ASPI-605 PO; +FURO-144 PO; -FURO40TA5 PO; -ISOS20TA8 PO; -LACT1CAP72 PO; -LEVO750T21 PO; +LISI-603 PO; -LISI20TA61 PO; -PRED10TA PO; -PRED20TA PO; +SIMV-49 PO; -SIMV40TA5 PO
[2019-12-01 14:15] VITALS: BP 165/84
== END 2019-12-01 14:33 | disposition home or self-care (01) ==
LOC: ER 13:58
DX: L02.811 Cutaneous abscess of head [any part, except face] (principal); I10 Essential (primary) hypertension; Z91.013 Allergy to seafood; Z59.0 Homelessness; Z79.82 Long term (current) use of aspirin; Z79.899 Other long term (current) drug therapy